=== PATIENT | female | born 1990 | race Caucasian/White ===

== ENCOUNTER 2021-12-07 15:14 | Outpatient (CLI) | payer OTHER, SELFPAY ==
--- NOTE | ~2021-12-07 | US_ITS ---
US OB <=14 wk fetus w TV DATE: 12/07/2021 16:22 INDICATION: Gestational age determination TECHNIQUE: Real-time imaging via transabdominal and transvaginal approaches COMPARISON: None FINDINGS: The uterus measures 8.4 cm height, 4.9 cm anteroposterior dimension. A normally shaped intr auterine gestational sac is identified, with pole and yolk sac. heart rate of 138 bpm. Cr own-rump length averages 0.47 cm, consistent with 6 weeks 1 day +/- 4 days estimated gestational age, EMIL 08/01/2022. 1.9 x 2.4 cm corpus luteum cyst of the right ovary right ovary measures 3.2 x 3.5 x 2.0 cm. Left ovar y measures 2.2 x 2.0 x 2.2 cm. IMPRESSION: Estimated gestational age is 6 weeks 1 day +/- 4 days; EMIL: 08/01/2022 1.9 x 2.4 cm right ovarian corpus luteum cyst Reviewed, dictated and finalized at [facility]. Reviewed, dictated and finalized at location B. IMPRESSION: Estimated gestational age is 6 weeks 1 day +/- 4 days; EMIL: 1.9 x 2.4 cm right ovarian corpus luteum cyst
== END 2021-12-07 15:15 | disposition home or self-care (01) ==
LOC: ANHIMG 15:21
PROVIDERS: Visit Provider Obstetrics & Gynecology
DX: E34.9 Endocrine disorder, unspecified (principal); Z3A.01 Less than 8 weeks gestation of pregnancy; N83.11 Corpus luteum cyst of right ovary
CPT/HCPCS: 76801; 76817

== ENCOUNTER 2022-06-23 13:36 | Outpatient (RCR) | payer OTHER, SELFPAY ==
--- NOTE | ~2022-06-23 | US_ITS ---
US OB limited 06/23/2022 14:41 Indication: Evaluate amniotic fluid index. Procedure: High-resolution Limited obstetrical ultrasound using transabdominal technique Comparison: Ultrasound dated 12/07/2021 Findings: There is a single living intrauterine in vertex presentation. heart rate is 138 BPM. Placenta is posterior without previa. Amniotic fluid index is normal measuring 13.6 cm (nor mal range for gestational age is 8.1-24.8 cm). Impression: 1: Normal JACK measures 13.6 cm. Reviewed, dictated and finalized at location B. ITE CONTROL TECHNICIAN Impression: 1: Normal JACK measures 13.6 cm.
[2022-06-23 14:01] VITALS: BP 93/60; PULSE 84
[2022-06-23 14:15] VITALS: BP 97/61; PULSE 86
[2022-06-23 14:42] VITALS: BP 97/61; PULSE 84
== END 2022-08-20 15:07 | disposition home or self-care (01) ==
LOC: ANHOBOP 13:36
PROVIDERS: Visit Provider Obstetrics & Gynecology
DX: O26.893 Other specified pregnancy related conditions, third trimester (principal); Z3A.34 34 weeks gestation of pregnancy
CPT/HCPCS: 59025; 76815

== ENCOUNTER 2022-07-26 01:00 | Inpatient (IN) | payer OTHER, SELFPAY ==
[2022-07-26] VITALS (230 sets, daily range): BP systolic 69–117; BP diastolic 18–93; PULSE 60–265; RESP 16; TEMP 36.6–37.3; O2SAT 96–100; BMI 31.2
--- NOTE | 2022-07-26 01:53 | LDADM ---
This patient, Mony Reyes, was admitted to Labor/Delivery/Recovery 106 on 07/26/22 at 01:00. Plans for labor, pain management and were discussed with patient. Patient/family oriented to hospital policies and general routines including ID bracelet, bed and alarms, visiting hours, pain management, procedures, bathroom and other care routines, personal items, smoking policy, room service/diet and guest tray routines, infant security routines, and visiting hours. Patient/Family are encouraged to report perceived risks to care and to ask questions if they do not understand what they are told or what they should do. See OBIX for further documentation.
--- NOTE | 2022-07-26 02:43 | PC.NURSE ---
Called lab to inquire about patients lab results. Labs sent via tube system to lab at 0153. Muna in lab stated she would look for labs and run them.
[2022-07-26] MEDS: OXYTOCIN 30 UNITS/NS 500 ML 30 UNITS/500 ML BAG IV CONT (03:12)
[2022-07-26] MEDS: LACTATED RINGERS 1,000 ML 125 ML IV CONT ×4 (03:12→10:26)
--- NOTE | 2022-07-26 03:25 | PC.NURSE ---
Called lab again to inquire about lab results. The tube system still shows that the labs were sent to lab and received there at 0153. Muna in the lab states that they cannot locate the blood and we need to redraw the blood because she cannot find it. Incident report was submitted.
[2022-07-26 04:05] LABS: Basophils Percent Auto 0.4 % (0.2-1.2); Eosinophils Absolute Auto 0.1 K/mm3 (0-0.3); Eosinophils Percent Auto 1.5 % (0-4.4); Hematocrit 35.1 % (37.0-47.0); Hemoglobin 12.4 g/dL (12.0-15.0); Immature Granulocyte Absolute 0.05 K/mm3 (0.00-0.031); Immature Granulocyte Percent A 0.5 % (0-0.5); Lymphocytes Absolute Auto 2.11 K/mm3 (0.9-3.2); Lymphocytes Percent Auto 22.5 % (18.3-44.2); Mean Corpuscular HGB Conc 35.3 g/dl (32-36); Mean Corpuscular Hemoglobin 32.6 pg (26-34); Mean Corpuscular Volume 92.4 fl (80-100); Mean Platelet Volume 10.5 fl (7.4-10.4); Monocytes Absolute Auto 0.6 K/mm3 (0.1-0.6); Monocytes Percent Auto 6.7 % (2.6-8.5); Neutrophils Absolute Auto 6.4 K/mm3 (1.3-6.7); Neutrophils Percent Auto 68.4 % (45.5-73.1); Platelet Count Result 223 k/mm3 (150-375); Red Cell Distribution Width 13.1 % (11.5-14.5); White Blood Count 9.4 K/mm3 (4.5-10.0)
--- NOTE | 2022-07-26 07:13 | WPDANESEPP ---
Anes - Eval Pre Procedure Procedure: labor epidural Date/Time: 07/26/22 07:13 Preop Diagnosis: labor pain Pre Op Diagnosis: LEAKING Patient Data Age: 31 Gender: F Height: 1.6 m Weight: 80 kg Last Vital Signs Temp 36.6 C 07/26/22 02:00 Pulse 86 07/26/22 07:00 BP 101/58 L 07/26/22 07:00 Pulse Ox 99 07/26/22 07:11 O2 Del Method Room Air 07/26/22 01:44 Allergies Allergy/AdvReac Type Severity Reaction Status Date / Time No Known Allergies Allergy Verified 07/22/22 11:45 Home Medications Medication Instructions Recorded Confirmed Type prenat.vits,robyn,[id number] 1 tablet PO DAILY 12/22/21 07/26/22 History ferrous sulfate 325 mg (65 mg 325 mg PO DAILY 07/03/22 07/26/22 History iron) tablet (Iron (ferrous sulfate)) Laboratory Tests 07/26/22 07/26/22 07/26/22 03:42 03:42 03:42 WBC 9.4 K/mm3 K/mm3 (4.5-10.0) RBC 3.80 M/mm3 L M/mm3 (4.2-5.4) Hgb 12.4 g/dL g/dL (12.0-15.0) Hct 35.1 % L % (37.0-47.0) MCV 92.4 fl fl (80-100) MCH 32.6 pg pg (26-34) MCHC 35.3 g/dl g/dl (32-36) RDW 13.1 % % (11.5-14.5) Plt Count 223 k/mm3 k/mm3 (150-375) MPV 10.5 fl H fl (7.4-10.4) Immature Gran % (Auto) 0.5 % % (0-0.5) Neut % (Auto) 68.4 % % (45.5-73.1) Lymph % (Auto) 22.5 % % (18.3-44.2) [place] % (Auto) 6.7 % % (2.6-8.5) Eos % (Auto) 1.5 % % (0-4.4) Baso % (Auto) 0.4 % % (0.2-1.2) Lymph # (Auto) 2.11 K/mm3 K/mm3 (0.9-3.2) [place] # (Auto) 0.6 K/mm3 K/mm3 (0.1-0.6) Eos # (Auto) 0.1 K/mm3 K/mm3 (0-0.3) Baso # (Auto) 0.0 K/mm3 K/mm3 (0.0-0.1) Abs Immat Gran (auto) 0.05 K/mm3 H K/mm3 (0.00-0.031) Absolute Neuts (auto) 6.4 K/mm3 K/mm3 (1.3-6.7) Absolute Nucleated RBC 0.0 K/mm3 K/mm3 (0.0-0.012) Nucleated RBC % 0.0 % % (0.0-0.2) RPR Pending Blood Type B Positive Antibody Screen Negative Patient hx anesthesia problems: none Family hx anesthesia problems: none Results Review: All pre-operative results and documents have been reviewed as part of the pre-operative evaluation. [facility] Surgical History Surgical History [place] teeth removed Family History Family History Father Hypertension Heart disease Mother Diabetes mellitus Social History Social History Smoking status: Never smoker Alcohol intake: never Substance use: never Lack of Transportation: No Lack of Food: Never True Current Housing: I Have Housing Concerned About Future Housing: No Difficulty Paying Gas/Electric Bills: No Difficulty Paying for Meds: No Currently Unemployed: No Education: Master's Degree or Higher Difficulty w/ Childcare or Family Care: No Spiritual care concerns: No Exam Day of Procedure 07/26/22 07:13
[2022-07-26] MEDS: PHENYLEPHRINE 1,000 MCG/10 ML SYRINGE 100 MCG IV PUSH (08:27)
--- NOTE | 2022-07-26 08:34 | PM.IMHP ---
H&P: HPI History of Present Illness Date/Time: 07/26/22 08:34 Chief Complaint: Leaking of fluid. Narrative: Patient is a at 39 and 6 days by LMP of 10/20/2021 with an EDC of 07/27/2022 which is consistent with a 6 week ultrasound. She presented to Labor and delivery with complaints of leaking of fluid. She was confirmed as from clear. This was at midnight on 327. course significant for velamentous cord insertion which she has been getting serial ultrasounds and the growth has been normal. Labs reviewed. GBS negative. Cervix 1 cm. irregular contractions. Review of Systems Review of Systems: All systems reviewed & are unremarkable except as noted in HPI and below Constitutional: Constitutional: Reports no additional constitutional complaints and Denies headache(s) Eyes: Eyes: Denies spots in vision ENT: Reports system reviewed and no additional complaints, except as documented and Denies headache(s) Cardiovascular: Cardiovascular: Denies chest pain and Denies dyspnea Respiratory: Respiratory: Denies dyspnea Gastrointestinal: Gastrointestinal: Reports no additional gastrointestinal complaints Genitourinary: Genitourinary: Reports amenorrhea Musculoskeletal: Musculoskeletal: Reports no additional musculoskeletal complaints Integumentary/Breasts: Skin/Breast: Denies breast mass and Denies rash Neurologic: Denies headache(s) Psychiatric: Psychiatric: Reports no additional psychiatric complaints [facility] Surgical History Surgical History [place] teeth removed Family History Family History Father Hypertension Heart disease Mother Diabetes mellitus Social History Social History Smoking status: Never smoker Alcohol intake: never Substance use: never Lack of Transportation: No Lack of Food: Never True Current Housing: I Have Housing Concerned About Future Housing: No Difficulty Paying Gas/Electric Bills: No Difficulty Paying for Meds: No Currently Unemployed: No Education: Master's Degree or Higher Difficulty w/ Childcare or Family Care: No Spiritual care concerns: No Meds Home Medications and Allergies Home Medications Medication Instructions Recorded Confirmed Type prenat.vits,robyn,[id number] 1 tablet PO DAILY 12/22/21 07/26/22 History ferrous sulfate 325 mg (65 mg 325 mg PO DAILY 07/03/22 07/26/22 History iron) tablet (Iron (ferrous sulfate)) Allergies Allergy/AdvReac Type Severity Reaction Status Date / Time No Known Allergies Allergy Verified 07/22/22 11:45 Vital Signs Vital Signs - 24 hr 07/26/22 01:32 07/26/22 01:45 07/26/22 02:00 Temperature 97.8 F Pulse Rate 86 79 78 Blood Pressure 108/65 109/73 111/77 Pulse Oximetry Oxygen Delivery 07/26/22 02:15 07/26/22 02:30 07/26/22 02:45 Temperature Pulse Rate 80 81 76 Blood Pressure 104/66 103/67 100/69 Pulse Oximetry Oxygen Delivery 07/26/22 03:00 07/26/22 03:15 07/26/22 03:30 Temperature Pulse Rate 75 79 67 Blood Pressure 88/55 L 95/56 L 98/58 L Pulse Oximetry Oxygen Delivery 07/26/22 03:35 07/26/22 03:40 07/26/22 03:45 Temperature Pulse Rate 78 Blood Pressure 88/51 L Pulse Oximetry 98 99 99 Oxygen Delivery 07/26/22 03:50 07/26/22 03:55 07/26/22 04:00 Temperature Pulse Rate 76 Blood Pressure 93/51 L Pulse Oximetry 98 98 98 Oxygen Delivery 07/26/22 04:05 07/26/22 04:10 07/26/22 04:15 Temperature Pulse Rate 64 Blood Pressure 89/47 L Pulse Oximetry 99 98 99 Oxygen Delivery 07/26/22 04:17 07/26/22 04:20 07/26/22 04:25 Temperature Pulse Rate 60 Blood Pressure 92/52 L Pulse Oximetry 99 100 Oxygen Delivery 07/26/22 04:30 07/26/22 04:35 07/26/22 04:40 Temperature Pulse Rate 79 Blood P
--- NOTE | 2022-07-26 09:00 | PM.OBPNLAB ---
Pain Control Date/time seen: 07/26/22 09:00 FHT 135 Cat 2 Epidural recently placed cervix . Continue pitocin augmentation.
[2022-07-26] MEDS: LIDOCAINE HCL 1% LOCAL INJ 20 ML VIAL (13:22)
[2022-07-26 13:48] LABS: Rapid Plasma Reagin Non-Reactive (NonReactive)
[2022-07-26] MEDS: OXYTOCIN 30 UNITS/NS 500 ML 30 UNITS/500 ML BAG 125 UNITS IV CONT (13:51)
--- NOTE | 2022-07-26 16:42 | PM.OBPRVD ---
OB - Delivery Note Procedure Delivery date: 07/26/22 Procedure: spontaneous vaginal delivery Induction method: Per Pitocin Protocol Delivery augmentation: Pitocin Delivery monitor: External FHT and Internal Uterine Route of delivery: Laceration Description: Perineal - 2nd Degree and Labial Delivery repair: vicryl (3.0 vicryl) Quantitative Blood Loss (ml): 350 Anesthesia type: Epidural Disposition: Floor Narrative: She was admitted after confirmed SROM. She had pitocin augmentation. [place] Baby Time of : 13:23 Weeks of gestation at delivery: 39 gender: Male presentation: vertex Placenta delivery description: Spontaneous Cord Vessel Description: Clamped/Cut and Delayed Cord Clamping score one minute: 9 score five minutes: 9 AMG Delivery Billing Delivery Delivery: Delivery Charge
--- NOTE | 2022-07-26 17:33 | OBPPTRN ---
1529 Patient transferred to post room #286 via W/C. Support person present. Oriented to unit, room, information board, rooming in, admission packet and security measures. Patient verbalizes understanding.
[2022-07-26] MEDS: IBUPROFEN 600 MG TABLET PO (19:50)
[2022-07-27 04:35] VITALS: BP 96/61; PULSE 82; RESP 16; TEMP 36.6
[2022-07-27 04:53] LABS: Hematocrit 34.2 % (37.0-47.0); Hemoglobin 10.5 g/dL (12.0-15.0)
[2022-07-27] MEDS: IBUPROFEN 600 MG TABLET PO ×3 (05:01→21:25)
[2022-07-27 07:55] VITALS: BP 102/74; PULSE 74; RESP 16; TEMP 36.5; O2SAT 100
--- NOTE | 2022-07-27 09:47 | WPDANLDPN2 ---
Anes-Prog Note L&D Date/Time: 07/27/22 09:47 Comfortable throughout: labor and delivery Neuraxial method: epidural Epidural/Spinal procedure site: clean & non-tender Neuro status: Neuro function grossly intact. Cardiovascular status: normal Respiratory status: normal Airway patency: baseline Mental status: baseline Post-Op hydration status: normal Vital Signs: Last Vital Signs Temp 97.7 F 07/27/22 07:55 Pulse 74 07/27/22 07:55 Resp 16 07/27/22 07:55 BP 102/74 07/27/22 07:55 Pulse Ox 100 07/27/22 07:55 O2 Del Method Room Air 07/26/22 16:55 Pain score (VAS): 0 I/O: Intake & Output 07/26/22 07/27/22 07/27/22 23:59 07:59 15:59 Intake Total 700 Output Total 500 Balance 200 Post-procedural complaints: none Patient feedback: Patient satisfied with anesthetic care.
[2022-07-27] MEDS: DOCUSATE SODIUM 100 MG CAPSULE PO ×2 (09:51→17:20)
[2022-07-27] MEDS: MULTIVIT/MIN/PREN/FOL AC/IRON TABLET 1 TAB PO (09:51)
[2022-07-27] MEDS: ACETAMINOPHEN 325 MG TABLET 650 MG PO ×2 (09:51)
--- NOTE | 2022-07-27 10:47 | PC.NURSE ---
[id number] Introductions were made, then consulted with patient to assess needs related to . Mother led the conversation with her?plans to feed?her infant and the?experience so far. Resources provided for inpatient and outpatient services with the feeding sheet, mom/baby guide and name written on the white board. Mother voiced understanding of information and consents for assistance. Mother works well with her infant with encouragement and education. Encouraged understanding of the benefits of skin to skin (demonstrating unwrapping and placing upright on her chest), stimulating with massage touch, changing positions to encourage wakefulness, how to watch for early feeding cues, responsive feeding, feeding on demand (aiming for 8-12 times in 24 hours, about every 2-3 hours), milk production, building/maintaining a milk supply, duration of feeding, signs of adequate intake/output (used the pie demonstration) and how to record on the feeding sheet. is sleepy and reluctant. 0.5mls of human milk that was pumped earlier was syringe fed to . remains sleepy, reluctant and showing no feeding cues. Encouraged skin to skin and working with her infant when feeding cues are visualized, calling if infant doesn't wake to eat or if the latch is painful. Breast pump was provided last night due to ineffective . Instructions given on cleaning, care, usage, that there should be no pain, pumping schedule for milk production, collection, and storage of human milk. Parents are encouraged to record pumping schedule on the feeding sheet. Patient was assessed pumping without pain and protection of the milk supply by pumping every 3 hours (8 times in 24 hours) 1-2 times at night. Resources used to facilitate learning were used with the tool, mom and baby guide. Mother voiced understanding of skin to skin, stimulating with massage touch, responsive feedings, talking to to encourage if it has been 2 -2.5 hours since the start of the last , to call if does not latch, or if there is discomfort with . Resources provided for inpatient/outpatient with business card, feeding sheet, name written on the white board and the mom/baby guide. Parents voiced understanding of information, demonstrated learning and will call if there is a request for assistance. Reported to the primary RN.
[2022-07-27 12:05] VITALS: BP 95/54; PULSE 92; RESP 16; TEMP 36.6; O2SAT 99
[2022-07-27 18:48] VITALS: BP 100/61; PULSE 65; RESP 16; TEMP 36.1
[2022-07-28] MEDS: ACETAMINOPHEN 325 MG TABLET 650 MG PO (03:18)
--- NOTE | 2022-07-28 03:26 | PM.OBPNVD ---
OB - PN: Subj Subjective Date/time seen: 07/27/22 0800 Patient comments: pain well controlled, tolerating diet and other (Decreasing lochia.) baby status: doing well and nursing well OB - PN: Obj Data Labs 07/27/22 04:45 Labs: Laboratory Results - last 24 hr 07/27/22 04:45 Hgb 10.5 L Hct 34.2 L OB - PN A/P Plan day: 1 Plan: routine care Time Spent With Patient Time: Total time spent is greater than 50% in coordination of care (as documented) at patient's floor/unit and/or counseling patient: Review of Systems Review of Systems: All systems reviewed & are unremarkable except as noted in HPI and below Constitutional: Constitutional: Reports no additional constitutional complaints Cardiovascular: Cardiovascular: Denies dyspnea Respiratory: Respiratory: Denies dyspnea Gastrointestinal: Gastrointestinal: Reports no additional gastrointestinal complaints and Denies abdominal pain Genitourinary: Genitourinary: Reports no additional female genitourinary complaints Exam Const: General: no acute distress, alert and awake Resp: Effort & Inspection: normal respiratory effort GI: GI Palp: No Tenderness to palpation present (GI) Other: Fundus nontender, below umbilicus Psych: Appearance: grossly normal Affect: normal affect Other: Abd: fundus firm below umbilicus, nontender Perineum: healing Ext: nontender
[2022-07-28 07:30] VITALS: BP 108/65; PULSE 81; RESP 12; TEMP 36.6; O2SAT 100
[2022-07-28] MEDS: IBUPROFEN 600 MG TABLET PO (07:59)
[2022-07-28] MEDS: MULTIVIT/MIN/PREN/FOL AC/IRON TABLET 1 TAB PO (08:00)
[2022-07-28] MEDS: DOCUSATE SODIUM 100 MG CAPSULE PO (08:00)
--- NOTE | 2022-07-28 09:51 | PC.NURSE ---
On 07/28/22, the student, Diana Pham, provided care and completed [facility] documentation on this patient. I have reviewed the student's documentation and agree with the findings.
--- NOTE | 2022-07-28 10:55 | PC.NURSE ---
[id number] Purposefully rounded to assess needs. Mother is resting. RN will return after seeing infant had been supplemented at 1015 with 7mls. Mother speaks concerning the soreness with . Father of baby is encouraging mother to rest. RN suggested getting rest, something to eat at noon, then unwrapping infant around 1215 and placing skin to skin stimulating with burping and massage touch to wake for . Reviewed watching for feeding cues and practicing when demonstrates he is ready to eat. Parents voiced understanding to call if infant doesn't wake to breastfeed or if the latch is painful. assistance was offered to assess positioning and latch.
--- NOTE | 2022-07-28 11:00 | PC.NURSE ---
Patient viewed the discharge video Mother & Baby Care, The First Two Weeks . Patient was given the opportunity and encouraged to ask questions. Patient verbalized understanding of information shared and has been given the mother/baby guide for home reference.
--- NOTE | 2022-07-28 12:50 | PC.NURSE ---
[id number] Mother requested a consult. Reviewed the importance of skin to skin and stimulating to wake and breastfeed. Transitional stool diaper changed, then placed skin to skin upright on mothers chest between her breast. Mother was encouraged to use massage touching to stimulate and there was again another moderate stool. After the diaper was changed was content, calm and placed skin to skin with mother and demonstrated feeding cues. Mother acknowledged feeding cues and positioned to the left breast using cross cradle. Mother was unable to latch optimally and did not maintain latch. Suggestion was made to practice using the football positioning and mother consented. RN assisted mother latching to the right breast using football positioning. Mother states it was uncomfortable at first, then subsided. Mother was encouraged to place pillows to support infant at nipple level, rest nipple at the top lip just under the nose, then when infant opens with a big wide gape, bring to the breast chin first obtaining a deep latch. Father of baby is present to reassure mother that the deep latch leaves room for the nose to be near and allows to breath. After effectively for 18 minutes, mother practiced detaching infant from the breast to protect her nipple. Infant was placed skin to skin, feeding cues were demonstrated, then was placed football position at nipple level supported by pillow and latched optimally with chin leading and buried into the chest. Parents were instructed on how to watch and listen for swallowing, rocking jaw movement and mother is to not have pain but could have discomfort that is to subside after 1-2 minutes. If there is sharp pain detach and latch with big open mouth deeply. Parents are feeding appropriately for growth of infant and understands stimulating infant to eat if needed. Infant has had appropriate feedings in the last 24 hours meets the outcomes for weight, output and jaundice at this time. Mother states she is confident to continue effectively breastfeed, pump if infant receives a bottle or doesn't breastfeed effectively, and they will supplement per Dr's order until further notice understanding that there's is a follow-up appointment with a RN tomorrow. Discussed the risks and benefits of supplementing and encouraged paced bottle feeding. Reinforced understanding of milk production, transition of milk, signs of adequate intake, transition of stool, prevention/relief of engorgement, responsive watching for feeding cues, the different methods of stimulating to breastfeed 2-3 hours after the start of the last feeding, service outpatient, and when to call a provider using the resource of the mom and baby guide. Parents voiced understanding of the education shared. Reported to the primary RN.
[2022-07-29 13:02] VITALS: BP 110/66; PULSE 93; RESP 18; TEMP 37; O2SAT 100
--- NOTE | 2022-08-09 09:30 | PM.OBDSVD ---
DS: Admitting Diagnosis Discharge Date 07/28/22 Admitting Diagnosis Spontaneous rupture of membranes DS: Discharge Diagnosis Discharge Diagnosis (1) Delivery normal: Code(s): O80 - Encounter for full-term uncomplicated delivery Status: Acute OB - DS: Summary Hospital Course Hospital Course: She was admitted for SROM. She had pitocin augmentation. She had a vaginal delivery. She had repair of a second degree laceration and labial laceration. She did well . She was ambulating well, had adequate pain control, and baby was doing well. Was discharged to home on day 2. OB Procedures : Ultrasound OB Procedures Intrapartum: Spontaneous Vag Delivery OB Procedures: : None Peripartum Data Delivery Method: Natural Vaginal Laceration Description: Perineal - 1st Degree complications: none Status at Discharge Functional status at discharge: independent ambulation Time Spent with Patient Time attestation: Total time spent providing and/or coordinating discharge services: Exam Const: General: cooperative Orientation/consciousness: oriented to person, oriented to place and oriented to time HENMT: Face/Nose/Sinus: Normal external nose present Eyes: General: appearance normal, both eyes and all related structures Resp: Effort & Inspection: normal respiratory effort GI: Inspection: normal to inspection Skin: General skin exam: normal color Neuro: General: oriented to person, oriented to place and oriented to time Extrem: General: normal to inspection and no calf tenderness Psych: Appearance: grossly normal Mental Status: mental status grossly normal DS: Data Data Completed and Pending Completed studies during hospitalization: Pending at discharge 07/26/22 14:33 Surgical [PTH] Routine Discharge Plan Discharge Attending physician on discharge: Rodolfo Reed Consulting providers: Nadia Marcial ; Rika Christie Discharging Clinician: Rodolfo Reed Anticipated Discharge Date/Time: 07/28/22 11:58 Patient Disposition: Home, Self-Care Activity: may shower, no straining and pelvic rest Diet: regular Discharge Instructions: Education: Mom and Baby Guide Given to: Mother Follow-Up: Call your delivering provider's office for an appointment to be seen in: 3 weeks Mom and baby should come to the [facility] for the follow-up appointment. Appointment Date/Time: July 29, 2022 at 12:30 pm What to expect at your follow-up visit: Blood Pressure Check Physical Assessment Call [phone] if you are unable to keep your appointment time. BREAST CARE: * Wear a snug supportive bra. * For engorgement discomfort: Breast Feeding: * Apply warm moist washcloths * Express milk as needed to relieve engorgement * Wear loose clothing Bottle Feeding: * May apply ice packs * For sore nipples: * Identify correct latch-on * Apply warm moist washcloths before and after nursing * Air dry nipples after nursing * May apply Lansinoh cream to nipples EPISIOTOMY/PERINEAL CARE: * Until bleeding stops, use your fernando bottle after urinating * Change your pad frequently throughout the day * You may take sitz baths several times a day (fill your bathtub with warm water and soak for 20 minutes.) Do NOT bathe in the water * No tub baths until seen by your physician - You may shower ACTIVITY: * Rest as much as possible. * Do not exercise or lift anything heavier than your baby (such as laundry or other children.) * Avoid stairs or driving as much as possible. * Do not put anything into the vagina. No douching, tampons, or sexual activity until seen by physician. NOTIFY PHYSICIAN IF YOU HAVE ANY QUESTIONS OR IF ANY OF THE FOLLOWING SYMPTOMS OCCUR: * If your episiotomy or incision becomes red, swollen, or more painful than what you have experienced in
== END 2022-07-28 14:36 | disposition home or self-care (01) | DRG 807 ==
LOC: ANHLDR 01:29 → ANHOB2 16:57
PROVIDERS: Admitting Provider Obstetrics & Gynecology; Visit Provider Obstetrics & Gynecology
DX: O43.123 Velamentous insertion of umbilical cord, third trimester (principal); Z37.0 Single live birth; Z3A.39 39 weeks gestation of pregnancy; O32.6XX0 Maternal care for compound presentation, not applicable or unspecified; O69.81X0 Labor and delivery complicated by cord around neck, without compression, not applicable or unspecified; O70.1 Second degree perineal laceration during delivery
CPT/HCPCS: 36415; 84112; 85014; 85018; 85025; 86592; 86850; 86900; 86901; 88307; A9270; J2370; J2590; J2795; J7120

== ENCOUNTER 2023-06-12 18:01 | Emergency (ER) | payer OTHER, SELFPAY ==
--- NOTE | ~2023-06-12 | XR_ITS ---
Left Hand Technique: PA, oblique, and lateral views were obtained. Clinical History: Laceration Findings: No acute fracture or dislocation is seen. Osseous alignment is anatomic. Joint spaces are p reserved. Soft tissues are unremarkable. No radiopaque foreign body seen. Impression: Unremarkable left hand. Reviewed, dictated and finalized at [facility]. ALT MIXER Impression: Unremarkable left hand.
[2023-06-12 18:08] VITALS: BP 125/85; PULSE 66; RESP 18; TEMP 36; O2SAT 98
--- NOTE | 2023-06-12 18:14 | ED.WOUNDLAC ---
HPI - Wound/Laceration General Chief Complaint: Wound/Laceration Stated Complaint: Glass in hand Time Seen by Provider: 06/12/23 18:12 Source: patient Mode of arrival: ambulatory Limitations: no limitations History of Present Illness HPI narrative: This is a 32 year old female that presents to the ER for injury to the left hand sustained just prior to arrival. Reports she was cleaning dishes and some glass broke. Sustained lacerations to the left hand and wrist. She is up to date on tetanus. Denies decreased ROM or numbness. Related Data Home Medications Medication Instructions Recorded Confirmed prenat.vits,robyn,rbv-hjhi-nbrit 1 tablet PO DAILY 12/22/21 02/03/23 Allergies Allergy/AdvReac Type Severity Reaction Status Date / Time No Known Allergies Allergy Verified 02/03/23 15:17 Review of Systems Review of Systems: CONSTITUTIONAL: Denies fever SKIN: Reports laceration All systems reviewed & are unremarkable except as noted in HPI and below PMFSH Past Medical History Medical History (Updated 06/12/23 @ 18:43 by Peg Robbins PA-C) No active medical problems Surgical History Surgical History [place] teeth removed Family History Family History Father Hypertension Heart disease Mother Diabetes mellitus Social History Social History (Updated 02/03/23 @ 15:11 by Cruzito Swann CMA) Smoking status: Never smoker Alcohol intake: never Substance use: never Lack of Transportation: No Lack of Food: Never True Current Housing: I Have Housing Concerned About Future Housing: No Difficulty Paying Gas/Electric Bills: No Difficulty Paying for Meds: No Currently Unemployed: No Education: Master's Degree or Higher Difficulty w/ Childcare or Family Care: No Living arrangements: with family Spiritual care concerns: No Exam Narrative: GENERAL: Well-appearing, well-nourished, and in no acute distress. HEAD: Normocephalic, atraumatic. EYES: EOMI. EXTREMITIES: Normal range of motion. No edema. Superficial abrasions to the fingers. 1cm irregular laceration into subcutaneous tissue to the left wrist palmar surface SKIN: Warm, dry, no rash. NEURO: No focal deficits. Alert and oriented x3. PSYCH: Normal mood and affect Course Course Emergency Course: Patient educated on further wound care Vital Signs Vital signs: Vital Signs Temperature 96.8 F L 06/12/23 18:08 Pulse Rate 66 06/12/23 18:08 Respiratory Rate 18 06/12/23 18:08 Blood Pressure 125/85 06/12/23 18:08 Pulse Oximetry 98 06/12/23 18:08 Temperature 96.8 F L 06/12/23 18:08 Pulse Rate 66 06/12/23 18:08 Respiratory Rate 18 06/12/23 18:08 Blood Pressure 125/85 06/12/23 18:08 Pulse Oximetry 98 06/12/23 18:08 Procedures Laceration Laceration 1: Date: 06/12/23 Time: 19:02 Site: hand Side (If applicable): left Size (cm): 1 Description: irregular Depth: simple, single layer Local Anesthetic: lidocaine 1% and with epi Amount of anesthesia used (mL): 2 Pre-repair: wound explored and irrigated ====== Skin Level ====== Skin layer closed with: nylon Size (cm): 4-0 Number of sutures: 2 Technique: simple, interrupted ====== Subcutaneous Layer ====== ====== Muscle Layer ====== ====== Tendon Layer ====== MDM - Wound/Laceration MDM Narrative Medical decision making narrative: Patient presents to the emergency department for a laceration sustained to the left wrist. Patient was cleaning dishes when glass broke. Wounds were irrigated. She had 1 laceration that required suturing. Left hand x-ray without acute osseous abnormalities or evidence of foreign body. Patient is up-to-date on tetanus. She was educated on further wound care. She is to follow up
[2023-06-12 19:12] VITALS: BP 122/64; PULSE 66; RESP 15; O2SAT 100
== END 2023-06-12 19:13 | disposition home or self-care (01) ==
PROVIDERS: Emergency Provider Physician Assistant; PCP Family Medicine
DX: S61.412A Laceration without foreign body of left hand, initial encounter (principal); W25.XXXA Contact with sharp glass, initial encounter; Y93.G1 Activity, food preparation and clean up
CPT/HCPCS: 12001; 73130; 99283

== ENCOUNTER 2023-11-28 14:29 | Outpatient (CLI) | payer OTHER, SELFPAY ==
--- NOTE | ~2023-11-28 | US_ITS ---
EXAMINATION: US OB <= 14 weeks fetus DATE: 11/28/2023 16:48 INDICATION: Amenorrhea. First trimester . TECHNIQUE: Real-time pelvic ultrasound utilizing both a transvaginal and transabdominal probe was pe rformed. The interpreting radiologist was not present for the study. COMPARISON: None. FINDINGS: The uterus measures 13.5 x 5.0 x 10.7 cm. There is an intrauterine gestational sac. A yolk sac and f etal pole are identified. The crown rump length measures 4.1, which correlates with an estimated gest ational age of 11 weeks and 0 days. heart motion is identified measuring 165 beats per minute ( bpm) by M-mode Doppler. The right ovary measures 4.0 x 2.3 x 2.6 cm. The left ovary measures 3.1 x 0.8 x 3.0 cm. There is no free fluid in the pelvis. IMPRESSION: 1. Single living fetus with heart rate of 165 bpm. 2. Gestational age by ultrasound of 11 weeks 0 day(s) +/- 7 day(s) with ultrasound estimated date of delivery (EMIL) of 06/18/2024. Reviewed, dictated and finalized at location A. IMPRESSION: 1. Single living fetus with heart rate of 165 bpm. 2. Gestational age by ultrasound of 11 weeks 0 day(s) +/- 7 day(s) with ultras ound estimated date of delivery (EMIL) of 06/18/2024.
== END 2023-11-28 14:30 | disposition home or self-care (01) ==
LOC: ANHIMG 14:30
PROVIDERS: PCP Family Medicine; Visit Provider Nurse Practitioner Family
DX: N91.2 Amenorrhea, unspecified (principal); Z3A.11 11 weeks gestation of pregnancy
CPT/HCPCS: 76801

== ENCOUNTER 2024-04-05 08:15 | Outpatient (RCR) | payer OTHER, SELFPAY ==
--- NOTE | 2024-03-22 09:58 | OPREHPOC ---
Outpatient Therapy Plan of Care This is a Multidisciplinary Plan of Care that may contain components documented by all disciplines (PT, OT, and ST.) PT Problem 1 PT Problem #1 Knowledge Deficit PT Goal 1 Goal / Goal Update *indep with HEP * pt use correct body mechanics with simulated tasks of picking up her child Target Visit 6 PT Problem 2 PT Problem #2 Pain PT Goal 1 Goal / Goal Update 1* pt rate pain at 5/10 at worst 2* pt report walking tolerance of 30 minutes Target Visit 6 PT Problem 3 PT Problem #3 Impaired Strength PT Goal 1 Goal / Goal Update increase hip and trunk strength, to improve lumbar position/decrease lordosis of spine 1* pt stand with minimal lumbar lordosis 2* pt perform 20 sitting ball exercises with good stability Target Visit 6
--- NOTE | 2024-03-22 09:58 | PTOPEVAL1 ---
Assessment and note entered by Vivienne Stokes, PT Evaluation Information Assessment Status Evaluation ICD-10 Condition Codes (PT) M54.16 Onset Jan 2024 Subjective Information history of intermittent back pain/sciatica, with running, more activity and her first ; always resolved fairly quickly, now starting to limit her walking and activity level; Activity: education to clients, office work- active; is able to complete her home and work tasks; have 21 month old son; Reported Pain Level Pain Score Self Report Additional Pain Score Comments pain range in the past week 1-11/08 R lumbar and buttock areas increase pain: sitting about 1 hour- varies; walking about 15-20 minutes- varies; decrease pain: change positions, stretching- flexion of trunk, heat Assessment PT Clinical Summary Mony has the diagnosis of sciatica with . Her baby is due Jun 18. She has a history of intermittent back pain and did have with her first . Self assessment Oswestry rating of 28% limitation in activity level. Walking is limited due to back pain. With the evaluation: she has increased lumbar lordosis, tenderness over R lumbar-sacral and buttocks areas; pain is decreased with flexion of lumbar spine; Skilled PT services are indicated for modalities to decrease pain, therapeutic exercises to stretch and strengthen lumbar-hips, with education for HEP and pain management. Plan of Care Interventions Hot Pack/Cold Pack,Manual Therapy,Neuro Re- education,Patient/Caregiver Education,Therapeutic Activities,Therapeutic Exercise,Other Other Interventions taping PT Services Indicated Yes Treatment Frequency and 1-2x/wk for 6 visits Duration These treatments will address the objective and functional deficits as defined above. The patient will be advanced safely and appropriately in order for the patient to progress towards his/her prior level of function. Additional exercises will be introduced and as well as a comprehensive home exercise program upon discharge, if needed, ?to ensure carryover of functional gains achieved in the clinic. This treatment plan has been reviewed and agreement upon by the patient.
--- NOTE | 2024-04-20 08:24 | PCPTNOTE ---
Pt NS visit today, LM with an opening at 13:15 today if possible and reminder of Re-eval on the at 11:00.
--- NOTE | 2024-04-26 11:07 | PCPTNOTE ---
pt called and canceled today's reevaluation. stated she would call later to reschedule.
--- NOTE | 2024-05-18 13:33 | PTOPDC ---
Assessment and note entered by Vivienne Stokes, PT Assessment Status Discharge - Pt Not Present ICD-10 Condition Codes (PT) Radiculopathy, lumbar region M54.16 Onset Jan 2024 Subjective Information pt was not seen this date. Assessment PT Clinical Summary Mony has received 3 PT sessions, from March 22 to April 03. Then she did not show for 1 and called/canceled 1 appointment. Discharge PT. The goals were not addressed. Plan of Care PT Services Indicated No
== END 2024-05-18 13:47 | disposition home or self-care (01) ==
LOC: ANHPT 08:15
PROVIDERS: PCP Family Medicine; Visit Provider Nurse Practitioner Obstetrics & Gynecology
DX: M54.16 Radiculopathy, lumbar region (principal); M54.30 Sciatica, unspecified side
CPT/HCPCS: 97110; 97140; 97161; 97530

== ENCOUNTER 2024-04-23 13:30 | Outpatient (CLI) | payer OTHER, SELFPAY ==
[2024-04-23 14:01] LABS: Basophils Percent Auto 0.2 % (0.2-1.2); Eosinophils Absolute Auto 0.2 K/mm3 (0-0.3); Eosinophils Percent Auto 1.8 % (0-4.4); Hematocrit 31.9 % (37.0-47.0); Hemoglobin 10.9 g/dL (12.0-15.0); Immature Granulocyte Absolute 0.09 K/mm3 (0.00-0.031); Immature Granulocyte Percent A 1.1 % (0-0.5); Lymphocytes Absolute Auto 1.54 K/mm3 (0.9-3.2); Mean Corpuscular HGB Conc 34.2 g/dl (32-36); Mean Corpuscular Hemoglobin 31.8 pg (26-34); Mean Platelet Volume 9.8 fl (7.4-10.4); Monocytes Absolute Auto 0.6 K/mm3 (0.1-0.6); Monocytes Percent Auto 7.1 % (2.6-8.5); Neutrophils Absolute Auto 6.2 K/mm3 (1.3-6.7); Neutrophils Percent Auto 71.8 % (45.5-73.1); Platelet Count Result 251 k/mm3 (150-375); Red Blood Count 3.43 M/mm3 (4.2-5.4); Red Cell Distribution Width 13.7 % (11.5-14.5); White Blood Count 8.6 K/mm3 (4.5-10.0)
[2024-04-23 14:51] LABS: HIV 1/2 Ab P24 Ag Result Negative (Negative)
[2024-04-24 10:07] LABS: Rapid Plasma Reagin Non-Reactive (NonReactive)
== END 2024-04-23 13:31 | disposition home or self-care (01) ==
LOC: ANHLAB 13:31
PROVIDERS: PCP Family Medicine; Visit Provider Nurse Practitioner Obstetrics & Gynecology
DX: Z34.90 Encounter for supervision of normal pregnancy, unspecified, unspecified trimester (principal)
CPT/HCPCS: 36415; 85025; 86592; 86703; G0432

== ENCOUNTER 2024-05-31 13:54 | Outpatient (RCR) | payer OTHER, SELFPAY ==
--- NOTE | ~2024-05-31 | US_ITS ---
EXAMINATION: US OB limited DATE: 05/31/2024 15:19 INDICATION: Polyhydramnios TECHNIQUE: Real-time ultrasound of the pelvis was performed. The interpreting radiologist was not pre sent for the study. COMPARISON: None. FINDINGS: There is a single living fetus in transverse lie presentation. The placenta is on the maternal left and not low-lying. heart rate is 148 beats per minute (bpm). The amniotic fluid index is 18.3 c m, which is normal (5th%-95%: 7.5-body 4.4 cm at 11 weeks estimated gestational age). V-shaped funnel ing of the internal cervical os which measures up to 5 mm diameter and with fluid extending 1 cm meg g the cephalad aspect of the endocervical canal. The remaining closed portion of the cervix measures 2.3 cm in length. IMPRESSION: 1. Single living fetus in adverse lie with heart rate of 148 bpm. 2. Normal amniotic fluid index of 18.3 cm. 3. V-shaped funneling of the internal cervical os with the remaining) of the cervix measuring 2.3 cm in length. Reviewed, dictated and finalized at location [facility]. X SYSTEM ADMINISTRATOR IMPRESSION: 1. Single living fetus in adverse lie with heart rate of 148 bpm. 2. Normal amniotic fluid index of 18.3 cm. 3. V-shaped funneling of the internal cervical os with the remaining) of the ce rvix measuring 2.3 cm in length.
[2024-05-31 15:17] VITALS: BP 106/64; PULSE 84
== END 2024-08-29 23:59 | disposition home or self-care (01) ==
LOC: ANHOBOP 13:54
PROVIDERS: PCP Family Medicine; Visit Provider Obstetrics & Gynecology
DX: O40.9XX0 Polyhydramnios, unspecified trimester, not applicable or unspecified (principal)
CPT/HCPCS: 59025; 76815

== ENCOUNTER 2024-06-14 01:07 | Inpatient (IN) | payer OTHER, SELFPAY ==
[2024-06-14] VITALS (173 sets, daily range): BP systolic 65–139; BP diastolic 34–96; PULSE 56–230; TEMP 36.1–37.1; O2SAT 85–100; BMI 33.2
--- OUTSIDE RECORDS SUMMARY | 2024-06-14 01:13 | XMS_ITS | Clinical Summary ---
Author Organization [facility] at the Medical Office Building Address [address] [place] [address] Care Team Providers Care Security Orderly Name Role Phone Durga Smith MD Primary Care Provider [phone] Tony Freire MD Unavailable [phone] Allergies No known active allergies Medications prenat.vits,robyn, quf-wyuz-ticqg tablet Take by mouth Active amoxicillin-clav ulanate (Augmentin) 875-125 mg per tablet Take 1 tablet by mouth 2 (two) times a day 20 tablet 08/15/2023 Active Active Problems Problem Noted Date Diagnosed Date Polyarthralgia 01/13/2023 Overview (01/31/2023): US right foot/ankle 01/26/23: Grade 2 effusion of the talonavicular joint Grade 1 power Doppler at the navicular cuneiform joint Tendon sheath effusion of the posterior tibialis tendon Grade 2 effusion of the 1st and 2nd MTPJ Grade 2 power Doppler just above the distal Achilles tendon which may represent peritendinitis Assessment & Plan (01/31/2023 4:30 PM CDT): Ms. Benavidez is a healthy 32yo female who presented at last visit for evaluation of her polyarthralgia complaints that began to occur in September of this year. At that time she was experiencing pain in her hands, feet and knees that was consistent throughout the day. Since that time she reports resolution of her knee pain. Her foot/hand pain is still present but to a lesser degree. Reports in the morning the first several steps are very painful but then this subsides. Initially she tried 200mg advil but noted no benefit and this was discontinued. Additional symptoms include fatigue and hair thinning that have been present before giving to her son. No contributory FH. A recent right foot/ankle US demonstrated grade 2 effusions of the talonavicular joint/1st-2nd MTP joints, grade 2 power doppler above the distal achilles tendon and grade 1 at the navicular cuneiform joint with a tendon sheath effusion of the posterior tibialis tendon. 09/2022 labs were reassuring with negative RF/CCP and ESR/CRP levels were wnl. She had no symptoms or exam findings at last visit that were concerning for a connective tissue disease and therefore an GURPREET profile was deferred. She does have an abnormal foot US but findings are nonspecific. At this time would recommend 400-600mg advil BID for at least 2-4 weeks with monitoring of symptoms. She was instructed to call the office if she begins to have GI upset or forgets the 2nd dose and meloxicam or celebrex could be sent in. To return sooner if NSAIDs do not improve symptoms otherwise return in 4 months. May cancel appointment if symptoms resolve. Seen with Dr. Freire. Assessment & Plan (01/13/2023 3:48 PM CDT): Ms. Benavidez is a healthy 32yo female who presents for evaluation of her polyarthralgia complaints that began to occur in September of this year. At that time she was experiencing pain in her hands, feet and knees that was consistent throughout the day. Since that time she reports resolution of her knee pain. Her foot/hand pain is still present but to a lesser degree. Reports in the morning the first several steps are very painful but then this subsides. Initially she tried 200mg advil but noted no benefit and this was discontinued. Additional symptoms include fatigue and hair thinning that have been present before giving to her son. No contributory FH. No synovitis on exam but reports the MCP and MTP joints are sore. 09/2022 RF/CCP were negative and ESR/CRP levels were wnl. She has no symptoms or exam findings that are concerning for a connective tissue disease and therefore will defer checking an GURPREET profile at this time. Her symptoms are less concerning for an autoimmune disease at this time however will obtain a right foot/ankle ultrasound to evaluate for any underlying inflammation. Encouraged her to try some plantar fasciitis stretches to see if this might relieve some of her initial foot pain when she gets up in the morning. Also discussed taking 400-600 mg Advil daily or at least before she starts walking to see if this alleviates the pain. Return in [address] Freire. Immunizations Name Administration Dates Next Due Influenza, Unspecified 06/23/2023(Deferr ed: Patient decision),12/31/2021(Deferred: Patient decision) Family History Medical History Relation Name Comments Heart disease Father Hypertension Father Diabetes Mother Relation Name Status Comments Brother 1 Alive Brother 2 Alive Brother 3 Alive Brother 4 Alive Father Alive Mother Alive Sister 1 Alive Sister 2 Alive Sister 3 Alive Sister 4 Alive Son Alive Social History Tobacco Use Types Packs/Day Years Used Date Smoking Tobacco: Never Smokeless Tobacco: Never Tobacco Cessation:Counseling Given: Not Answered Alcohol Use Standard Drinks/Week Comments Never 0 (1 standard drink = 0.6 oz pur e alcohol) AUDIT-C Answer Date Recorded Q1: How often do you have a drink containing alcohol? Never 06/24/2023 Q2: How many drinks containi ng alcohol do you have on a typical day when you are drinking? Patient does not drink Q3: How often do you have si x or more drinks on one occasion? Never 06/24/2023 PHQ-2 Answer Date Recorded PHQ-2 Total Score (If total score is 3 or more points, staff should administer the PHQ-9) 0 11/12/2022 Personal Safety Answer Date Recorded Getting School Help Needed Not on file 04/28 Comments Unknown Sex and Gender Information Value Date Recorded Sex Assigned at Not on file Legal Sex Female 12:49 AM [employer] Gender Identity Not on file Sexual Orientation Not on file Obstetrics History Last Filed Vital Signs Vital Sign Reading Time Taken Comments Blood Pressure 120/80 06/24/2023 12:42 PM [employer] SE[employer]ER Pulse 72 06/24/2023 12:42 PM [employer] SE[employer] Temperature 36.4 C (97.5 F) 06/24/2023 12:42 PM [employer] SE[employer]ER Respiratory Rate 18 06/24/2023 12:42 PM [employer] SEINER Oxygen Saturation 99% 06/24/2023 12:42 PM [employer] SEINER Inhaled Oxygen Concentration - - Weight 70.4 kg (155 lb 4.8 oz) 06/24/2023 12:42 PM [employer]SE SEINER Height 160 cm (5' 2.99 ) 06/24/2023 12:42 PM [employer] SE[employer]ER Body Mass Index 27.52 06/24/2023 12:42 PM [employer]SE SE[employer]ER Plan of Treatment Health Maintenance Due Date Last Done Comments Cervical Cancer Screening 1992 Hepatitis C Screening 1992 DTaP/Tdap/Td Vaccine (1 - Tdap) 08/22/2003 Varicella Vaccines (1 of 2 - 13+ 2-dose series) 2005 Hepatitis B Screening 2010 Depression Screening 11/13/2023 11/12/2022, 02/03/2021 Regular Well Visit/Exam 18-64 11/13/2023, 02/03/2021 Covid-19 Vaccine (3 - 2023-2 5 season) 2024 09/16/2020, 08/09/2020 Influenza Vaccine (#1) 2024 HPV Vaccines Aged Out No longer eligi ble based on patient's age to complete this topic Pneumococcal vaccine <65 Aged Out No longer eligible based on patient's age to complete this topic Insurance [facility] Care Teams Security Orderly Relationship Specialty Start Date End Date Durga Smith MD [address] [place] [address] PCP - General Family Medicine 10/12/18 Tony Freire MD [address] [place] [address] Consulting Physician Rheumatology 12/31/22
--- OUTSIDE RECORDS SUMMARY | 2024-06-14 01:13 | XMS_ITS | Clinical Summary ---
Author Organization [facility] Address [address] [place] [address] Care Team Providers Care World History Teacher Name Role Phone Unavailable Primary Care Provider Unavailabl e Allergies No known active allergies Medications No known medications Active Problems No known active problems Encounters Date Type Department Care Team Description 06/05/2024 1:30 PM CONCILIATOR - 06/05/2024 11:59 PM CONCILIATOR Hospital Encounter [facility] Maternal and Ground [address] [place] [address] Elver Finley MD Discharge Disposition: Home or Self Care 05/24/2024 External Device Data STL ABSTRACTION Provider, Abstract 05/22/2024 1:30 PM CONCILIATOR - 05/22/2024 11:59 PM CONCILIATOR Hospital Encounter [facility] Maternal and Ground Floor [address] [place] [address] Jose J Sullivan MD Discharge Disposition: Home or Self Care 05/22/2024 External Device Data STL ABSTRACTION Provider, Abstract 03/15/2024 7:30 AM CONCILIATOR - 03/15/2024 11:59 PM CONCILIATOR Hospital Encounter [facility] [address] [place] [id number] Jose J Sullivan MD Discharge Disposition: Home or Self Care from Last 3 Months Social History Tobacco Use Types Packs/Day Years Used Date Smoking Tobacco: Never Assessed Comments Unknown Sex and Gender Information Value Date Recorded Sex Assigned at Not on file Legal Sex Female 7:48 PM CONCILIATOR Gender Identity Not on file Sexual Orientation Not on file Last Filed Vital Signs Vital Sign Reading Time Taken Comments Blood Pressure 115/76 06/17/2020 7:58 PM CONCILIATOR Pulse 80 06/17/2020 7:58 PM CONCILIATOR Temperature 36.7 C (98.1 F) 06/17/2020 7:58 PM CONCILIATOR Respiratory Rate - - Oxygen Saturation 99% 06/17/2020 7:58 PM CONCILIATOR Inhaled Oxygen Concentration - - Weight - - Height - - Body Mass Index - - Plan of Treatment Health Maintenance Due Date Last Done Comments DTAP/TDAP/TD VACCINES (1 - Tdap) 08/22/2011 HEPATITIS B VACCINES (1 of 3 - 19+ 3-dose series) 08/22/2011 CERVICAL CANCER SCREENING 2022 INFLUENZA VACCINE (#1) 2023 Preventative Visit- Commercial 05/02/2024 11/12/2022, 02/03/2021 HPV VACCINES Aged Out No longer eligi ble based on patient's age to complete this topic Procedures Procedure Name Priority Date/Time Associated Diagnosis Comments US OB LTD 1 OR MORE FETUSES Routine 06/05/2024 2:05 PM CONCILIATOR Polyhydramnios affecting US OB FOLLOW UP PER FETUS Routine 05/22/2024 1:56 PM CONCILIATOR Encounter for ultrasound to assess growth Small for dates affecting management of mother, third trimester, fetus 1 US OB FOLLOW UP PER FETUS Routine 03/15/2024 7:57 AM CONCILIATOR Encounter for ultrasound to assess growth from Last 3 Months Results * US OB LTD 1 OR MORE FETUSES (06/05/2024 2:05 PM CONCILIATOR) Anatomical Region Laterality Modality Pelvis Ultrasound 06/05/2024 1:39 PM CONCILIATOR Narrative 06/05/2024 2:07 PM CONCILIATOR STL LIMITED ----- Pat. Name: LUIS BENAVIDEZ Study Date: 06/05/2024 1:39pm Pat. NO: [id number] Referring MD: JOSE J SULLIVAN MD Site: [facility] Deployment Engineer: Jameel Trevino RDMS : 1990 Age: 33 ----- INDICATION ----- Screening Follow-Up Polyhydramnios CODING ----- Diagnoses Z3A.38: Weeks of gestation Z36.2: Encounter for other screening follow-up O40.13XX0: Polyhydramnios Procedures 11926: Ultrasound, uterus, real time with image documentation, limited one or more fetuses HISTORY ----- OB History 3. Para 1 T1A1L1 METHOD ----- Transabdominal ultrasound examination ----- Luna . Number of fetuses: 1 DATING ----- Cycle: regular cycle GA by prior assessment 38 w + 1 d EMIL by prior assessment: 06/18/2024 Method of dating: Restore dating from previous exam Assigned: based on stated EMIL, selected on 01/30/2024 Assigned GA 38 w + 1 d Assigned EMIL: 06/18/2024 GENERAL EVALUATION ----- Cardiac activity present. FHR 145 bpm. movements: present. Presentation: breech Placenta: posterior Umbilical cord: Cord vessels: 3 vessel cord. Insertion site: placental insertion: normal Amniotic fluid: Amount of AF: normal amount. MVP 7.5 cm. JACK 22.6 cm. Q1 7.5 cm, Q2 7.2 cm, Q3 4.9 cm, Q4 3.1 cm ANATOMY ----- The following structures appear normal: Head / Neck Cranium. Heart / Thorax 4-chamber view. Cardiac rhythm. Abdomen Stomach. Kidneys. Bladder. GROWTH OVERVIEW ----- Exam date GA BPD (mm) HC (mm) AC (mm) FL (mm) HL (mm) EFW (g) 01/30/2024 20w 0d 46.5 52% 173.7 38% 143.1 33% 28.3 7% 28.8 31% 285 15% 03/15/2024 26w 3d 69.1 82% 252.3 57% 221.1 45% 44.8 4% 889 26% 05/22/2024 36w 1d 95.1 99% 345.1 95% 327.3 74% 65.2 3% 2,943 60% COMMENT ----- Patient's name and date of were verified by the manager of radiology prior to the exam. IMPRESSION ----- Luna @ 38w 1d referred for limited ultrasound for fluid check due to mild polyhydramnios on prior ultrasound. She had an ultrasound last week in her Ob office with normal fluid per her report, though we do not have these records. - The fetus is in breech lie. - Amniotic fluid indices are within normal limits. The patient has weekly ultrasounds scheduled in her Ob office. Further ultrasounds may be scheduled as clinically indicated. Thank you for allowing us to participate in the care of this patient. Procedure Note Catalina Uriostegui MD - 06/05/2024 STL LIMITED ----- Pat. Name:Vidhi BENAVIDEZ Date:06/05/2024 1:39pm Pat. NO: [id number] :JOSE J SULLIVAN MD [facility] Trev[facility] RDMS :1990Age:33 ----- INDICATION ----- Screening Follow-Up Polyhydramnios CODING ----- Diagnoses Z3A.38: Weeks of gestation Z36.2: Encounter for other screeningfollow-up O40.13XX0: Polyhydramnios Procedures 10090: Ultrasound, uterus, real time withimage documentation, limited one or more fetuses HISTORY ----- OB History 3. Para 1 T1A1L1 METHOD ----- Transabdominal ultrasound examination ----- Luna . Number of fetuses: 1 DATING ----- Cycle:regular cycle GA by prior unlyunsenj10 w + 1 d MEIL by prior assessment:06/18/2024 Method of dating:Restore dating from previous exam Assigned:based on stated EMIL, selected on 01/30/2024 Assigned GA38 w + 1 d Assigned EMIL:06/18/2024 GENERAL EVALUATION ----- Cardiac activity present. FHR 145 bpm. movements: present.Presentation: breech Placenta: posterior Umbilical cord: Cord vessels: 3 vessel cord. Insertion site: placentalinsertion: normal Amniotic fluid: Amount of AF: normal amount. MVP 7.5 cm. JACK 22.6 cm. Q17.5 cm, Q2 7.2 cm, Q3 4.9 cm, Q4 3.1 cm ANATOMY ----- The following structures appear normal: Head / Neck Cranium. Heart / Thorax 4-chamber view. Cardiac rhythm. Abdomen Stomach. Kidneys. Bladder. GROWTH OVERVIEW ----- Exam date GA BPD (mm) HC (mm) AC (mm) FL(mm) HL (mm) EFW (g) 01/30/2024 20w 0d 46.5 52% 173.7 38% 143.1 33%28.3 7% 28.8 31% 285 15% 03/15/2024 26w 3d 69.1 82% 252.3 57% 221.1 45%44.8 4% 889 26% 05/22/2024 36w 1d 95.1 99% 345.1 95% 327.3 74%65.2 3% 2,943 60% COMMENT ----- Patient's name and date of were verified by the manager of radiology prior tothe exam. IMPRESSION ----- Luna @ 38w 1d referred for limited ultrasound for fluidcheck due to mild polyhydramnios on prior ultrasound. She had an ultrasound last week in her Ob office with normal fluid per herreport, though we do not have these records. - The fetus is in breech lie. - Amniotic fluid indices are within normal limits. The patient has weekly ultrasounds scheduled in her Ob office. Further ultrasounds may be scheduled as clinically indicated. Thank you for allowing us to participate in the care of this patient. us Elver Finley MD US ORDERABLES Final Re sult * US OB FOLLOW UP PER FETUS (05/22/2024 1:56 PM CONCILIATOR) Only the most recent of2 resultswithin the time period is included. Anatomical Region Laterality Modality Pelvis Ultrasound 05/22/2024 2:37 PM CONCILIATOR Narrative 05/22/2024 2:10 PM CONCILIATOR STL FOLLOW UP ----- Pat. Name: LUIS BENAVIDEZ Study Date: 05/22/2024 2:37pm Pat. NO: [id number] Referring MD: JOSE J SULLIVAN MD Site: [facility] Deployment Engineer: Nimisha Alex RDMS : 1990 Age: 33 ----- INDICATION ----- Screening Follow-Up Small for Dates CODING ----- Diagnoses Z3A.36: Weeks of gestation O36.5930: Maternal care for other known or suspected poor growth Z36.2: Encounter for other screening follow-up Procedures 72197: Ultrasound, uterus, real time with image documentation, follow up, transabdominal approach per fetus HISTORY ----- OB History 3. Para 1 T1A1L1 METHOD ----- Transabdominal ultrasound examination ----- Luna . Number of fetuses: 1 DATING ----- Cycle: regular cycle GA by prior assessment 36 w + 1 d EMIL by prior assessment: 06/18/2024 Ultrasound examination on: 05/22/2024 GA by U/S based upon: AC, BPD, EFW, Femur, HC GA by U/S 37 w + 1 d EMIL by U/S: 06/11/2024 Method of dating: Restore dating from previous exam Assigned: based on stated EMIL, selected on 01/30/2024 Assigned GA 36 w + 1 d Assigned EMIL: 06/18/2024 BIOMETRY ----- BPD 95.1 mm 38w 6d 99% Hadlock OFD 121.6 mm -/- >99% Erin HC 345.1 mm 39w 6d 95% Hadlock AC 327.3 mm 36w 4d 74% Hadlock Femur 65.2 mm 33w 4d 3% Hadlock HC / AC 1.05 67% Nicolaides Weight Calculation: EFW 2,943 g 36w 4d 60% Hadlock EFW (lb,oz) 6 lb 8 oz EFW by Hadlock ([id number]) Extremities / Bony Struc Biometry: FL / BPD 0.69 FL / HC 0.19 FL / AC 0.20 GENERAL EVALUATION ----- Cardiac activity present. FHR 155 bpm. movements: present. Presentation: cephalic Placenta: Placental site: posterior Umbilical cord: Cord vessels: 3 vessel cord. Insertion site: placental insertion: normal Amniotic fluid: Amount of AF: polyhydramnios. MVP 10.0 cm. JACK 28.5 cm. Q1 10.0 cm, Q2 4.6 cm, Q3 6.2 cm, Q4 7.7 cm ANATOMY ----- The following structures appear normal: Head / Neck Cranium. Heart / Thorax 4-chamber view. RVOT view. LVOT view. Diaphragm. Abdomen Stomach. Kidneys. Bladder. GROWTH OVERVIEW ----- Exam date GA BPD (mm) HC (mm) AC (mm) FL (mm) HL (mm) EFW (g) 01/30/2024 20w 0d 46.5 52% 173.7 38% 143.1 33% 28.3 7% 28.8 31% 285 15% 03/15/2024 26w 3d 69.1 82% 252.3 57% 221.1 45% 44.8 4% 889 26% 05/22/2024 36w 1d 95.1 99% 345.1 95% 327.3 74% 65.2 3% 2,943 60% COMMENT ----- Patient's name and date of were verified by the manager of radiology prior to the exam IMPRESSION ----- Viable at 36 weeks gestation. Ultrasound was requested due to fundal height less than dates and concerns for growth restriction. Patient reports normal screening for gestational diabetes Cephalic presentation Normal growth Estimated weight at the 60th percentile with abdominal circumference at the 74th percentile No structural malformations were identified within the limitations of late ultrasound Normal fluid-filled stomach was noted Mild polyhydramnios is noted. Posterior placenta with normal placental cord insertion appreciated. Placenta is not low-lying. Ultrasound findings were discussed with patient her partner. Patient was informed of the finding of mild polyhydramnios. We discussed possible etiologies of polyhydramnios. No cause for polyhydramnios was noted. Patient reports normal screening for gestational diabetes. Mild idiopathic polyhydramnios is typically associated with a favorable outcome and is not indication for testing or early delivery. If moderate to severe polyhydramnios develops testing can/or early delivery may be indicated. Questions were addressed. Limited ultrasound was scheduled in 2 weeks to assess amniotic fluid Procedure Note Elver Finley MD - 05/22/2024 STL FOLLOW UP ----- Pat. Name:Vidhi BENAVIDEZ Date:05/22/2024 2:37pm Pat. NO: [id number] MD:JOSE J SULLIVAN MD [facility]Nimisha Alex RDMS :1990Age:33 ----- INDICATION ----- Screening Follow-Up Small for Dates CODING ----- Diagnoses Z3A.36: Weeks of gestation O36.5930: Maternal care for other known orsuspected poor growth Z36.2: Encounter for other screeningfollow-up Procedures 89471: Ultrasound, uterus, real time withimage documentation, follow up, transabdominal approach per fetus HISTORY ----- OB History 3. Para 1 T1A1L1 METHOD ----- Transabdominal ultrasound examination ----- Luna . Number of fetuses: 1 DATING ----- Cycle:regular cycle GA by prior w + 1 d EMIL by prior assessment:06/18/2024 Ultrasound examination on:05/22/2024 GA by U/S based upon:AC, BPD, EFW, Femur, HC GA by U/S37 w + 1 d EMIL by U/S:06/11/2024 Method of dating:Restore dating from previous exam Assigned:based on stated EMIL, selected on 01/30/2024 Assigned GA36 w + 1 d Assigned EMIL:06/18/2024 BIOMETRY ----- BPD 95.1 mm 38w 6d 99%Hadlock OFD 121.6 mm -/- >99%Erin HC 345.1 mm 39w 6d 95%Hadlock AC 327.3 mm 36w 4d 74%Hadlock Femur 65.2 mm 33w 4d 3%Hadlock HC / AC 1.05 67%Nicolaides Weight Calculation: EFW 2,943 g 36w 4d60% Hadlock EFW (lb,oz) 6 lb 8 oz EFW by Hadlock ([id number]) Extremities / Bony Struc Biometry: FL / BPD 0.69 FL / HC 0.19 FL / AC 0.20 GENERAL EVALUATION ----- Cardiac activity present. FHR 155 bpm. movements: present.Presentation: cephalic Placenta: Placental site: posterior Umbilical cord: Cord vessels: 3 vessel cord. Insertion site: placentalinsertion: normal Amniotic fluid: Amount of AF: polyhydramnios. MVP 10.0 cm. JACK 28.5 cm. Q110.0 cm, Q2 4.6 cm, Q3 6.2 cm, Q4 7.7 cm ANATOMY ----- The following structures appear normal: Head / Neck Cranium. Heart / Thorax 4-chamber view. RVOT view. LVOT view. Diaphragm. Abdomen Stomach. Kidneys. Bladder. GROWTH OVERVIEW ----- Exam date GA BPD (mm) HC (mm) AC (mm) FL(mm) HL (mm) EFW (g) 01/30/2024 20w 0d 46.5 52% 173.7 38% 143.1 33%28.3 7% 28.8 31% 285 15% 03/15/2024 26w 3d 69.1 82% 252.3 57% 221.1 45%44.8 4% 889 26% 05/22/2024 36w 1d 95.1 99% 345.1 95% 327.3 74%65.2 3% 2,943 60% COMMENT ----- Patient's name and date of were verified by the manager of radiology prior tothe exam IMPRESSION ----- Viable at 36 weeks gestation. Ultrasound was requested due tofundal height less than dates and concerns for growth restriction. Patient reports normal screening for gestationaldiabetes Cephalic presentation Normal growth Estimated weight at the 60th percentile with abdominal circumferenceat the 74th percentile No structural malformations were identified within the limitationsof late ultrasound Normal fluid-filled stomach was noted Mild polyhydramnios is noted. Posterior placenta with normal placental cord insertion appreciated.Placenta is not low-lying. Ultrasound findings were discussed with patient her partner. Patient wasinformed of the finding of mild polyhydramnios. We discussed possible etiologies of polyhydramnios. No cause forpolyhydramnios was noted. Patient reports normal screening for gestational diabetes. Mild idiopathic polyhydramnios is typicallyassociated with a favorable outcome and is not indication for testing or early delivery. If moderate to severe polyhydramniosdevelops testing can/or early delivery may be indicated. Questions were addressed. Limited ultrasound was scheduled in 2 weeks to assess amniotic fluid us Jose J Sullivan MD ORDERABLES Final Result from Last 3 Months Insurance [employer] P[employer]
--- OUTSIDE RECORDS SUMMARY | 2024-06-14 01:13 | XMS_ITS | Referral Summary ---
Author Organization [facility] Address [address] [place] [address] Care Team Providers Care Slab Off Mill Tender Name Role Phone Durga Smith MD Primary Care Provider [phone] Tony Freire MD Unavailable Allergies No known active allergies Medications prenat.vits,robyn, hsi-dtco-tlhub tablet Take by mouth Active amoxicillin-clav ulanate [...] Unspecified 06/23/2023(Deferr ed: Patient decision),12/31/2021(Deferred: Patient decision) Social History Tobacco Use Types Packs/Day Years [...] on file Legal Sex Female 12:49 AM INTERNET DEVELOPER Gender Identity Not on file Sexual Orientation Not on file Last Filed Vital Signs Vital Sign Reading Time Taken Comments Blood Pressure 120/80 06/24/2023 12:42 PM INTERNET DEVELOPER Pulse 72 06/24/2023 12:42 PM INTERNET DEVELOPER Temperature 36.4 C (97.5 F) 06/24/2023 12:42 PM INTERNET DEVELOPER Respiratory Rate 18 06/24/2023 12:42 PM INTERNET DEVELOPER Oxygen Saturation 99% 06/24/2023 12:42 PM INTERNET DEVELOPER Inhaled Oxygen Concentration - - Weight 70.4 kg (155 lb 4.8 oz) 06/24/2023 12:42 PM INTERNET DEVELOPER Height 160 cm (5' 2.99 ) 06/24/2023 12:42 PM INTERNET DEVELOPER Body Mass Index 27.52 06/24/2023 12:42 PM INTERNET DEVELOPER Plan of Treatment Not on file Insurance [facility] Care Teams Slab Off Mill Tender Relationship Specialty Start Date End Date Durga Smith MD [address] [facility] [address] [address] PCP - General Family Medicine 10/12/18 Tony Freire MD [address] [place] [address] Consulting Physician Rheumatology 12/31/22
--- NOTE | 2024-06-14 01:50 | LDADM ---
This patient, Mony Reyes, was admitted to Labor/Delivery/Recovery 104 on 06/14/24 at 01:07. Plans for labor, pain management and were discussed with patient. Patient/family oriented to hospital policies and general routines including ID bracelet, bed and alarms, visiting hours, pain management, procedures, bathroom and other care routines, personal items, smoking policy, room service/diet and guest tray routines, infant security routines, and visiting hours. Patient/Family are encouraged to report perceived risks to care and to ask questions if they do not understand what they are told or what they should do. See OBIX for further documentation.
[2024-06-14 01:58] LABS: Basophils Percent Auto 0.2 % (0.2-1.2); Eosinophils Absolute Auto 0.2 K/mm3 (0-0.3); Eosinophils Percent Auto 1.6 % (0-4.4); Hematocrit 34.3 % (37.0-47.0); Immature Granulocyte Absolute 0.06 K/mm3 (0.00-0.031); Immature Granulocyte Percent A 0.6 % (0-0.5); Lymphocytes Absolute Auto 2.07 K/mm3 (0.9-3.2); Lymphocytes Percent Auto 20.6 % (18.3-44.2); Mean Corpuscular Hemoglobin 32.3 pg (26-34); Mean Corpuscular Volume 92.2 fl (80-100); Mean Platelet Volume 10.6 fl (7.4-10.4); Monocytes Absolute Auto 0.7 K/mm3 (0.1-0.6); Monocytes Percent Auto 7.3 % (2.6-8.5); Neutrophils Percent Auto 69.7 % (45.5-73.1); Platelet Count Result 238 k/mm3 (150-375); Red Blood Count 3.72 M/mm3 (4.2-5.4); Red Cell Distribution Width 13.5 % (11.5-14.5); White Blood Count 10.1 K/mm3 (4.5-10.0)
[2024-06-14] MEDS: miSOPROStol 25 MCG TABLET BUCCAL ×2 (02:14→06:32)
[2024-06-14 02:40] LABS: HIV 1/2 Ab P24 Ag Result Negative (Negative)
[2024-06-14 03:56] LABS: Rapid Plasma Reagin Non-Reactive (NonReactive)
--- NOTE | 2024-06-14 08:03 | P.PNAN_ITS ---
Anes - Eval Pre Procedure Procedure: labor epidural Date/Time: 06/14/24 08:03 Surgeon: le Preop Diagnosis: pain during labor Pre Op Diagnosis: IOL Patient Data Age: 33 Gender: F Height: 1.6 m Weight: 85 kg Last Vital Signs Temp 36.6 C 06/14/24 06:33 Pulse 87 06/14/24 07:31 BP 100/57 L 06/14/24 07:31 O2 Del Method Room Air 06/14/24 01:50 Allergies Allergy/AdvReac Type Severity Reaction Status Date / Time No Known Allergies Allergy Verified 06/14/24 01:58 Home Medications ?Medication ?Instructions ?Recorded ?Confirmed ?Type prenat.vits,robyn,gxn-rtns-fmrly 1 tablet PO DAILY 12/22/21 06/14/24 History ferrous sulfate 325 mg (65 mg 325 mg PO DAILY 05/21/24 06/14/24 History iron) tablet Laboratory Tests 06/14/24 01:22 WBC 10.1 H K/mm3 (4.5-10.0) RBC 3.72 L M/mm3 (4.2-5.4) Hgb 12.0 g/dL (12.0-15.0) Hct 34.3 L % (37.0-47.0) MCV 92.2 fl (80-100) MCH 32.3 pg (26-34) MCHC 35.0 g/dl (32-36) RDW 13.5 % (11.5-14.5) Plt Count 238 k/mm3 (150-375) MPV 10.6 H fl (7.4-10.4) Immature Gran % (Auto) 0.6 H % (0-0.5) Neut % (Auto) 69.7 % (45.5-73.1) Lymph % (Auto) 20.6 % (18.3-44.2) Carbon % (Auto) 7.3 % (2.6-8.5) Eos % (Auto) 1.6 % (0-4.4) Baso % (Auto) 0.2 % (0.2-1.2) Lymph # (Auto) 2.07 K/mm3 (0.9-3.2) Carbon # (Auto) 0.7 H K/mm3 (0.1-0.6) Eos # (Auto) 0.2 K/mm3 (0-0.3) Baso # (Auto) 0.0 K/mm3 (0.0-0.1) Abs Immat Gran (auto) 0.06 H K/mm3 (0.00-0.031) Absolute Neuts (auto) 7.0 H K/mm3 (1.3-6.7) Absolute Nucleated RBC 0.000 K/mm3 (0.0-0.012) Nucleated RBC % 0.0 % (0.0-0.2) RPR Non-reactive (NonReactive) HIV 1&2 Ab/P24 Ag 4thGn Negative (Negative) Blood Type B Positive Antibody Screen Negative Patient hx anesthesia problems: none Family hx anesthesia problems: none Results Review: All pre-operative results and documents have been reviewed as part of the pre- operative evaluation. [facility] Past Medical History Medical History (Updated 06/14/24 @ 08:04 by Renetta Schafer CRNA) Obesity IUP (intrauterine ), incidental No active medical problems Surgical History Surgical History (Reviewed 06/12/24 @ 13:49 by Albina Montejo [facility]) [place] teeth removed Family History Family History (Reviewed 06/12/24 @ 13:49 by Albina Montejo [facility]) Father Hypertension Heart disease Mother Diabetes mellitus Social History Social History (Reviewed 06/12/24 @ 13:49 by Albina Montejo [facility]) Smoking status: Never smoker Second hand tobacco smoke exposure: No Alcohol intake: never Substance use: never Do You Feel Safe in your Home?: Yes Lack of Transportation: No Lack of Food: Never True Current Housing: I Have Housing Concerned About Future Housing: No Difficulty Paying Gas/Electric Bills: No Difficulty Paying for Meds: No Currently Unemployed: No Education: Master's Degree or Higher Difficulty w/ Childcare or Family Care: No Living arrangements: with family Spiritual care concerns: No Exam Day of Procedure 06/14/24 08:03
[2024-06-14] MEDS: OXYTOCIN 30 UNITS/NS 500 ML 30 UNITS/500 ML BAG IV CONT (10:18)
[2024-06-14] MEDS: LACTATED RINGERS 1,000 ML 125 ML IV CONT ×3 (10:18→17:26)
--- NOTE | 2024-06-14 12:57 | PM.IMHP ---
H&P: HPI History of Present Illness Date/Time: 06/14/24 12:57 Chief Complaint: Induction of labor Narrative: She is a 33 y/o at 39 weeks admitted for [facility]. History significant for unstable lie. Fetus vertex at last visit. She was informed of risk benefit of induction of labor vs spontaneous labor. The rest of course uncomplicated. Ultrasound at bedside confirmed vertex. Review of Systems Review of Systems: All systems reviewed & are unremarkable except as noted in HPI and below Constitutional: Constitutional: Reports no additional constitutional complaints and Denies headache(s) Eyes: Eyes: Denies spots in vision ENT: Reports system reviewed and no additional complaints, except as documented and Denies headache(s) Cardiovascular: Cardiovascular: Denies chest pain and Denies dyspnea Respiratory: Respiratory: Denies dyspnea Gastrointestinal: Gastrointestinal: Reports no additional gastrointestinal complaints Genitourinary: Genitourinary: Reports amenorrhea Musculoskeletal: Musculoskeletal: Reports no additional musculoskeletal complaints Integumentary/Breasts: Skin/Breast: Denies breast mass and Denies rash Neurologic: Denies headache(s) Psychiatric: Psychiatric: Reports no additional psychiatric complaints [facility] Past Medical History Medical History Obesity IUP (intrauterine ), incidental No active medical problems Surgical History Surgical History Chauncey teeth removed Family History Family History Father Hypertension Heart disease Mother Diabetes mellitus Social History Social History Smoking status: Never smoker Second hand tobacco smoke exposure: No Alcohol intake: never Substance use: never Do You Feel Safe in your Home?: Yes Lack of Transportation: No Lack of Food: Never True Current Housing: I Have Housing Concerned About Future Housing: No Difficulty Paying Gas/Electric Bills: No Difficulty Paying for Meds: No Currently Unemployed: No Education: Master's Degree or Higher Difficulty w/ Childcare or Family Care: No Living arrangements: with family Spiritual care concerns: No Meds Home Medications and Allergies Home Medications ?Medication ?Instructions ?Recorded ?Confirmed ?Type prenat.vits,robyn,zgh-bkef-lhpwz 1 tablet PO DAILY 12/22/21 06/14/24 History ferrous sulfate 325 mg (65 mg 325 mg PO DAILY 05/21/24 06/14/24 History iron) tablet Allergies Allergy/AdvReac Type Severity Reaction Status Date / Time No Known Allergies Allergy Verified 06/14/24 01:58 Vital Signs Vital Signs - 24 hr 06/14/24 01:50 06/14/24 02:00 06/14/24 02:01 Temperature 97.2 F L Pulse Rate 94 Blood Pressure 102/64 Oxygen Delivery Room Air 06/14/24 02:30 06/14/24 03:00 06/14/24 03:30 Temperature Pulse Rate 92 85 92 Blood Pressure 96/64 L 98/69 L 108/65 Oxygen Delivery 06/14/24 04:00 06/14/24 04:04 06/14/24 04:30 Temperature Pulse Rate 86 84 87 Blood Pressure 102/68 98/71 L Oxygen Delivery 06/14/24 05:00 06/14/24 05:30 06/14/24 06:00 Temperature Pulse Rate 103 H 93 94 Blood Pressure 93/64 L 98/84 L 99/63 L Oxygen Delivery 06/14/24 06:33 06/14/24 07:00 06/14/24 07:31 Temperature 97.8 F Pulse Rate 94 87 Blood Pressure 99/62 L 100/57 L Oxygen Delivery 06/14/24 08:04 06/14/24 08:30 06/14/24 09:00 Temperature Pulse Rate 90 89 87 Blood Pressure 95/56 L 95/57 L 97/65 L Oxygen Delivery 06/14/24 09:30 06/14/24 10:22 06/14/24 10:24 Temperature 97.3 F L Pulse Rate 86 92 Blood Pressure 102/63 106/68 Oxygen Delivery 06/14/24 10:30 06/14/24 11:00 06/14/24 11:30 Temperature Pulse Rate 103 H 98 100 Blood Pressure 98/57 L 101/63 104/67 Oxygen Delivery 06/14/24 12:00 06/14/24 12:30 Temperature Pulse Rate 101 H 84 Blood Pressure 109/66 104/66 Oxygen Delivery Exam Const: General: no acute distress Eyes: General: appearance normal, both eyes and all related structures Resp: Effort & Inspection: normal respiratory effort Cardio: Rate: regular rate GI: Other: Gravid no fundal tenderness no right upper quadrant pain Skin: General skin exam: no rashes or lesions noted Neuro: Cognition (Neuro): normal cognition Extrem: General: normal to inspection Psych: Mental Status: mental status grossly normal H&P: Results Labs Labs: Short CBC 06/14/24 Range/Units 01:22 WBC 10.1 H (4.5-10.0) K/mm3 Hgb 12.0 (12.0-15.0) g/dL Hct 34.3 L (37.0-47.0) % Plt Count 238 (150-375) k/mm3 Assessment and Plan Assessment and plan (1) Elective induction of labor planned: Status: Acute Assessment and Plan: 1. Admit 2. Cytotec.
[2024-06-14] MEDS: PHENYLEPHRINE 1,000 MCG/10 ML SYRINGE 100 MCG IV PUSH (14:37)
[2024-06-14] MEDS: ONDANSETRON INJ 4 MG/2 ML VIAL IV PUSH (20:57)
[2024-06-14] MEDS: OXYTOCIN 30 UNITS/NS 500 ML 30 UNITS/500 ML BAG 999 UNITS IV CONT (21:14)
[2024-06-14] MEDS: METHYLERGONOVINE MALEATE 0.2 MG/ML VIAL IM (21:24)
[2024-06-14] MEDS: miSOPROStol 200 MCG TABLET 800 MCG RECTAL (21:32)
[2024-06-14] MEDS: OXYTOCIN 30 UNITS/NS 500 ML 30 UNITS/500 ML BAG 125 UNITS IV CONT (21:38)
--- NOTE | 2024-06-14 21:44 | P.PCNOB_ITS ---
OB - Vaginal Delivery Note Procedure Delivery date: 06/14/24 Induction method: Per Misoprostol Protocol Delivery augmentation: Rupture of Membranes Delivery monitor: External FHT and Internal Uterine Route of delivery: Laceration Description: Perineal - 2nd Degree Delivery repair: vicryl (3.0 vicryl) Specimen: No Quantitative Blood Loss (ml): 350 Anesthesia type: Epidural Disposition: Floor Complications: No immediate complications Narrative: She was admitted for [facility]. She had unstable lie. Cytotec initiated. She had vertex confirmation. She received two doses of cytotec. Pitocin started. She had AROM. Light meconium. She continued to progress to active labor and complete. She pushed and delilvered a male infant. Nose and mouth suctioned at perineum. The shoulders were delivered and the rest of the baby delivered and infant was vigorously crying and placed on maternal abdomen. Delayed cord clamping for one minute which was when cord was apulsatile and then cord clamped and cut. Pitocin started. Placenta delivered. She had intermittent uterine atony, uterine massage performed and cleared lower uterine segment of clot. Methergine was given. Hypotonia improved but still was intermittent hypotonia and 800mcg of cytotec given rectally. Uterine tone improved and was sustained. Perineal laceration repaired with 3.0 vicryl. [place] Baby Date of : 06/14/24 Time of : 21:10 Gestational Age by Date: 39 gender: Male presentation: vertex position: Left Occiput Anterior Placenta delivery description: Spontaneous Cord Vessel Description: 3 Vessels and Delayed Cord Clamping score one minute: 9 score five minutes: 9
--- NOTE | 2024-06-14 21:44 | PM.OBPNLAB ---
Pain Control Date/time seen: 06/14/24 1640 cat 1, AROM, /-2, light mec. Continue pitocin.
[2024-06-14] MEDS: WITCH HAZEL 40 PADS 1 PAD TOPICAL (23:41)
[2024-06-14] MEDS: BENZOCAINE 20% AER SPR (*SP) 56 GM CAN 1 SPRAY TOPICAL (23:41)
[2024-06-14] MEDS: IBUPROFEN 600 MG TABLET PO (23:55)
[2024-06-14] MEDS: ACETAMINOPHEN 325 MG TABLET 650 MG PO (23:56)
--- NOTE | 2024-06-15 01:01 | OBPPTRN ---
Patient transferred to post room #292 via W/C. Support person present. Oriented to unit, room, information board, rooming in, admission packet and security measures. Patient verbalizes understanding.
[2024-06-15 01:20] VITALS: BP 110/70; PULSE 84; RESP 16; TEMP 37.2; O2SAT 99
[2024-06-15 04:15] VITALS: BP 100/64; PULSE 73; RESP 18; TEMP 37.2; O2SAT 99
[2024-06-15 05:07] LABS: Hematocrit 32.9 % (37.0-47.0); Hemoglobin 11.3 g/dL (12.0-15.0)
[2024-06-15] MEDS: MULTIVIT/MIN/PREN/FOL AC/IRON TABLET 1 TAB PO (06:47)
[2024-06-15] MEDS: ACETAMINOPHEN 325 MG TABLET 650 MG PO ×3 (06:47→20:22)
[2024-06-15] MEDS: IBUPROFEN 600 MG TABLET PO ×3 (06:47→20:23)
--- NOTE | 2024-06-15 08:06 | WPDANLDPN2 ---
Anes-Prog Note L&D Date/Time: 06/15/24 08:06 Comfortable throughout: labor and delivery Neuraxial method: epidural Epidural/Spinal procedure site: clean & non-tender Neuro status: Neuro function grossly intact. Cardiovascular status: normal Respiratory status: normal Airway patency: baseline Mental status: baseline Post-Op hydration status: normal Vital Signs: Last Vital Signs Temp 37.2 C 06/15/24 04:15 Pulse 73 06/15/24 04:15 Resp 18 06/15/24 04:15 BP 100/64 06/15/24 04:15 Pulse Ox 99 06/15/24 04:15 O2 Del Method Room Air 06/15/24 01:20 Pain score (VAS): 05/11 I/O: Intake & Output 06/14/24 06/15/24 06/15/24 23:59 07:59 15:59 Intake Total 514.6 Output Total 350 100 Balance 164.6 -100 Post-procedural complaints: none Patient feedback: Patient satisfied with anesthetic care.
[2024-06-15 08:10] VITALS: BP 102/69; PULSE 91; RESP 18; TEMP 36.7; O2SAT 99
--- NOTE | 2024-06-15 10:27 | P.PNOB_ITS ---
OB - PN: Subj Subjective Date/time seen: 06/15/24 10:27 Patient comments: pain well controlled, tolerating diet and other (Decreasing lochia.) baby status: doing well and nursing well [place] feeding status: exclusively breast feeding OB - PN: Obj Data Labs 06/15/24 04:16 Labs: Laboratory Results - last 24 hr 06/15/24 04:16 Hgb 11.3 L Hct 32.9 L OB - PN A/P Assessment and Plan (1) Delivery normal: Code(s): O80 - Encounter for full-term uncomplicated delivery Status: Acute Plan day: 1 Plan: routine care Comments: Patient doing well. Time Spent With Patient Time: Total time spent is greater than 50% in coordination of care (as documented) at patient's floor/unit and/or counseling patient: Exam 2 Psych: Affect: normal affect Other: Abd: fundus firm below umbilicus, nontender Perineum: healing Ext: nontender
[2024-06-15] MEDS: DOCUSATE SODIUM 100 MG CAPSULE PO ×2 (12:30→21:15)
[2024-06-15 12:45] VITALS: BP 100/59; PULSE 80; RESP 18; TEMP 36.2; O2SAT 100
--- NOTE | 2024-06-15 16:15 | PC.NURSE ---
Introductions were made, then consulted with patient to assess needs related to . Mother states that feeding is going well so far. She declines having any questions or concerns. Resources provided for inpatient and outpatient services with the feeding sheet, mom/baby guide and name written on the communication board. Mother voiced understanding of information and will call if there is a request for assistance. Reported to the Primary RN.
[2024-06-15 20:00] VITALS: BP 99/55; PULSE 75; RESP 16; TEMP 36.8; O2SAT 99
[2024-06-16] MEDS: LANOLIN (LANSINOH) 7.5 GM CREAM 1 APPLIC TOPICAL (04:13)
[2024-06-16] MEDS: IBUPROFEN 600 MG TABLET PO (06:17)
[2024-06-16] MEDS: ACETAMINOPHEN 325 MG TABLET 650 MG PO (06:17)
--- NOTE | 2024-06-16 08:05 | PC.NURSE ---
Mother verbalizes she is able to independently latch with appropriate positioning and alignment. She denies any nipple discomfort and is responsively . Mother says she does have her own breast pump at home if needed, RN offered to measure her nipples for the flange size and mother declined. is currently meeting outcomes for weight, output, jaundice, blood sugar and feeding frequencies of 8-12 times in 24 hours. Reinforced understanding of milk production, transition of milk, signs of adequate intake, transition of stool, prevention/relief of engorgement, plugged ducts, mastitis, responsive watching for feeding cues, the different methods of stimulating infant to breastfeed 1-3 hours after the start of the last feeding, community resources, and when to call a provider using the resource of the feeding sheet along with the mom and baby guide. Mother voiced understanding of the information shared, is confident to continue effectively her infant at home, when to call for assistance, denies any additional assistance or education at this time. Mother voiced understanding of information shared along with the mom/baby guide for an additional resource. Reported to the Primary RN.
[2024-06-16 08:50] VITALS: BP 90/52; PULSE 78; RESP 16; TEMP 36.5; O2SAT 97
[2024-06-16] MEDS: MULTIVIT/MIN/PREN/FOL AC/IRON TABLET 1 TAB PO (08:53)
[2024-06-16] MEDS: DOCUSATE SODIUM 100 MG CAPSULE PO (08:53)
--- NOTE | 2024-06-16 10:00 | PM.OBDSVD ---
DS: Admitting Diagnosis Discharge Date 06/16/23 <Rodolfo Reed MD - Last Filed: 06/16/24 15:37> Admitting Diagnosis Induction of labor. Unstable lie. <Rodolfo Reed MD - Last Filed: 06/16/24 15:37> DS: Discharge Diagnosis Discharge Diagnosis (1) Delivery normal: Code(s): O80 - Encounter for full-term uncomplicated delivery <Rodolfo Reed MD - Last Filed: 06/16/24 15:37> Status: Acute <Rodolfo Reed MD - Last Filed: 06/16/24 15:37> OB - DS: Summary Hospital Course Hospital Course: She was admitted for induction of labor. She had a vaginal delivery. She did well . Baby did well . She was discharged to home on day 2. <Rodolfo Reed MD - Last Filed: 06/16/24 15:37> OB Procedures : Ultrasound <Rodolfo Reed MD - Last Filed: 06/16/24 15:37> OB Procedures Intrapartum: Spontaneous Vag Delivery <Rodolfo Reed MD - Last Filed: 06/16/24 15:37> OB Procedures: : None <Rodolfo Reed MD - Last Filed: 06/16/24 15:37> Peripartum Data Delivery Method: Natural Vaginal <Rodolfo Reed MD - Last Filed: 06/16/24 15:37> Laceration Description: Perineal - 2nd Degree <Rodolfo Reed MD - Last Filed: 06/16/24 15:37> complications: none <Rodolfo Reed MD - Last Filed: 06/16/24 15:37> Status at Discharge Functional status at discharge: independent ambulation <Rodolfo Reed MD - Last Filed: 06/16/24 15:37> Overall status at discharge: patient is back to baseline <Doris Raya MD - Last Filed: 06/16/24 10:00> Time Spent with Patient Time attestation: Total time spent providing and/or coordinating discharge services: <Rodolfo Reed MD - Last Filed: 06/16/24 15:37> Exam Const: General: cooperative <Rodolfo Reed MD - Last Filed: 06/16/24 15:37> Orientation/consciousness: oriented to person, oriented to place and oriented to time <Rodolfo Reed MD - Last Filed: 06/16/24 15:37> HENMT: Face/Nose/Sinus: Normal external nose present <Rodolfo Reed MD - Last Filed: 06/16/24 15:37> Eyes: General: appearance normal, both eyes and all related structures <Rodolfo Reed MD - Last Filed: 06/16/24 15:37> Resp: Effort & Inspection: normal respiratory effort <Rodolfo Reed MD - Last Filed: 06/16/24 15:37> Auscultation: clear to auscultation bilaterally <Doris Raya MD - Last Filed: 06/16/24 10:00> Cardio: Rate: regular rate <Doris Raya MD - Last Filed: 06/16/24 10:00> GI: Inspection: normal to inspection <Rodolfo Reed MD - Last Filed: 06/16/24 15:37> GI Palp: No abdominal tenderness and Yes Soft to palpation <Doris Raya MD - Last Filed: 06/16/24 10:00> Auscultation: normal bowel sounds <Doris Raya MD - Last Filed: 06/16/24 10:00> : Other: fundus firm <Doris Raya MD - Last Filed: 06/16/24 10:00> Skin: General skin exam: normal color <Rodolfo Reed MD - Last Filed: 06/16/24 15:37> Neuro: General: oriented to person, oriented to place and oriented to time <Rodolfo Reed MD - Last Filed: 06/16/24 15:37> Extrem: General: normal to inspection and no calf tenderness <Rodolfo Reed MD - Last Filed: 06/16/24 15:37> Psych: Appearance: grossly normal <Rodolfo Reed MD - Last Filed: 06/16/24 15:37> Mental Status: mental status grossly normal <Rodolfo Reed MD - Last Filed: 06/16/24 15:37> Affect: normal affect <Doris Raya MD - Last Filed: 06/16/24 10:00> Attitude: cooperative <Doris Raya MD - Last Filed: 06/16/24 10:00> DS: Data Data Completed and Pending Labs on day of discharge: Labs from last 24 hours 06/15/24 04:16 Hgb 11.3 L Hct 32.9 L <Rodolfo Reed MD - Last Filed: 06/16/24 15:37> Discharge Plan Discharge Attending physician on discharge: Rodolfo Reed <Rodolfo Reed MD - Last Filed: 06/16/24 15:37> Rodolfo Reed <Doris Raya MD - Last Filed: 06/16/24 10:00> Consulting providers: Renetta Shcafer <Rodolfo Reed MD - Last Filed: 06/16/24 15:37> Discharging Clinician: Doris Raya <Rodolfo Reed MD - Last Filed: 06/16/24 15:37> Doris Raya <Doris Raya MD - Last Filed: 06/16/24 10:00> Anticipated Discharge Date/Time: 06/16/24 11:00 <Rodolfo Reed MD - Last Filed: 06/16/24 15:37> Patient Disposition: Home, Self-Care <Rodolfo Reed MD - Last Filed: 06/16/24 15:37> Activity: may shower, no straining and pelvic rest <Rodolfo Reed MD - Last Filed: 06/16/24 15:37> may shower, no straining and pelvic rest <Doris Raya MD - Last Filed: 06/16/24 10:00> Diet: regular <Rodolfo Reed MD - Last Filed: 06/16/24 15:37> regular <Doris Raya MD - Last Filed: 06/16/24 10:00> Discharge Instructions: Take stool softener daily. Take vitamins daily. Education: Mom and Baby Guide Given to: Mother Follow-Up: Call your delivering provider's office for an appointment to be seen in: 4-6 weeks Mom and baby should come to the [facility] for the follow-up appointment. Appointment Date/Time: June 18, 2024 at 9:00 am What to expect at your follow-up visit: Call [phone] if you are unable to keep your appointment time. BREAST CARE: * Wear a snug supportive bra. * For engorgement discomfort: Breast Feeding: * Apply warm moist washcloths * Express milk as needed to relieve engorgement * Wear loose clothing Bottle Feeding: * May apply ice packs * For sore nipples: * Identify correct latch-on * Apply warm moist washcloths before and after nursing * Air dry nipples after nursing * May apply Lansinoh cream to nipples EPISIOTOMY/PERINEAL CARE: * Until bleeding stops, use your fernando bottle after urinating * Change your pad frequently throughout the day * You may take sitz baths several times a day (fill your bathtub with warm water and soak for 20 minutes.) Do NOT bathe in the water * No tub baths until seen by your physician - You may shower ACTIVITY: * Rest as much as possible. * Do not exercise or lift anything heavier than your baby (such as laundry or other children.) * Avoid stairs or driving as much as possible. * Do not put anything into the vagina. No douching, tampons, or sexual activity until seen by physician. NOTIFY PHYSICIAN IF YOU HAVE ANY QUESTIONS OR IF ANY OF THE FOLLOWING SYMPTOMS OCCUR: * If your episiotomy or incision becomes red, swollen, or more painful than what you have experienced in the hospital. * If your vaginal bleeding becomes foul smelling. * If your vaginal bleeding becomes more heavy than a period or if your bleeding changes from pink to bright red. However, you may pass an occasional walnut-sized clot once or twice for the first week . * If you experience a sharp, shooting pain in you calves. * If you discover a hard, reddened area on your breast or if you experience flu-like symptoms. DIET: * Eat regular, well-balanced meals. * Drink plenty of fluids daily. If , drink to thirst. <Rodolfo Reed MD - Last Filed: 06/16/24 15:37> Patient Language: Panamanian <Rodolfo Reed MD - Last Filed: 06/16/24 15:37> Stand Alone Forms: General Discharge Information <Rodolfo Reed MD - Last Filed: 06/16/24 15:37> Follow-up/Referrals: Rodolfo Reed MD [Physician] - 2 Weeks (Call for appointment) <Rodolfo Reed MD - Last Filed: 06/16/24 15:37> Discharge Medications: New acetaminophen 500 mg tablet 1,000 mg PO TID Qty: 60 0RF docusate sodium [Colace] 100 mg capsule 100 mg PO BID Qty: 90 0RF ibuprofen 800 mg tablet 800 mg PO TID Qty: 40 0RF Continued prenat.vits,robyn,rxg-qxni-ulufx Tablet 1 tablet PO DAILY ferrous sulfate 325 mg (65 mg iron) tablet 325 mg PO DAILY <Rodolfo Reed MD - Last Filed: 06/16/24 15:37> Date of admission: 06/14/24 01:07 <Rodolfo Reed MD - Last Filed: 06/16/24 15:37> Primary Care Provider: Luis,Durga <Rodolfo Reed MD - Last Filed: 06/16/24 15:37> Admitting Provider: Rodolfo Reed MD - Last Filed: 06/16/24 15:37> Attending physician on admission: Rodolfo Reed MD - Last Filed: 06/16/24 15:37> Condition: Stable <Rodolfo Reed MD - Last Filed: 06/16/24 15:37>
[2024-06-18 09:22] VITALS: BP 112/72; PULSE 92; RESP 18; TEMP 37.3; O2SAT 100
== END 2024-06-16 12:15 | disposition home or self-care (01) | DRG 806 ==
LOC: ANHOB2 06-16 09:36 → ANHLDR 06-18 12:09
PROVIDERS: Admitting Provider Obstetrics & Gynecology; PCP Family Medicine; Visit Provider Obstetrics & Gynecology
DX: O32.0XX0 Maternal care for unstable lie, not applicable or unspecified (principal); O72.1 Other immediate postpartum hemorrhage; Z37.0 Single live birth; Z3A.39 39 weeks gestation of pregnancy; O77.0 Labor and delivery complicated by meconium in amniotic fluid; O70.1 Second degree perineal laceration during delivery
CPT/HCPCS: 36415; 85014; 85018; 85025; 86592; 86703; 86850; 86900; 86901; A9270; G0432; J2210; J2371; J2405; J2590; J2795; J7120

== ENCOUNTER 2025-02-05 16:22 | Outpatient (CLI) | payer OTHER, SELFPAY ==
--- NOTE | ~2025-02-05 | US_ITS ---
EXAMINATION: US pelvic complete w TV DATE: 02/05/2025 16:21 INDICATION: Pelvic and perineal pain. TECHNIQUE: Multiple transabdominal and transvaginal sonographic images of the pelvis were obtained. COMPARISON: None. FINDINGS: TRANSABDOMINAL ULTRASOUND: The uterus measures 8.3 x 4.4 x 5.8 cm. There is physiologic free fluid in the pelvis. TRANSVAGINAL ULTRASOUND: The endometrial complex measures 16 mm in thickness. There are small nabothian cysts in the cervix. The right ovary measures 3.5 x 2.8 x 2.3 cm. The left ovary measures 3.1 x 1.6 x 1.7 cm. There is normal vascular flow in the ovaries. IMPRESSION: 1. No etiology for the patient's symptoms. Reviewed, dictated and finalized at location E.
--- OUTSIDE RECORDS SUMMARY | 2025-02-05 16:13 | XMS_ITS | Clinical Summary ---
Author Organization [facility] Office Building Address [address] [place] [address] Care Team Providers Care Straightener Hand Name Role Phone Durga Smith MD Primary Care Provider [phone] Tony Freire MD Unavailable [phone] Allergies No known active allergies Medications prenat.vits,robyn, [id number]-tkzof tablet Take by mouth Active Active Problems Problem Noted Date Diagnosed [...] in [address] Freire. Encounters Date Type Department Care Team Description 01/02/2025 Patient Message [facility] Family Medicine at [address] [place] [address] Durga Smith MD Skin Bump on My Back 01/02/2025 Patient Self-Triage [facility] [address] [place] [phone] Mychart, Generic Provider 11/10/2024 2:30 PM CDT Telemedicine [facility] Virtual Care [address] [place] [phone] Lona Olsen MD Acute pharyngitis due to other specified organisms (Primary Dx); Otalgia of both ears 11/10/2024 Patient Self-Triage [facility] [address] [place] [phone] Mychart, Generic Provider from Last 3 Months Immunizations Immunization Administration Dates Next Due Influenza, Unspecified 06/23/2023(Deferr [...] staff should administer the PHQ-9) 0 11/12/2022 Comments Unknown Sex and Gender Information Value Date Recorded Sex Assigned at Not on file 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 Gender Identity Not on file Sexual Orientation Not on file Obstetrics History Last Filed Vital Signs Vital Sign Reading Time Taken Comments Blood Pressure 137/83 10/23/2024 9:22 AM CDT Pulse 68 10/23/2024 9:22 AM CDT Temperature 36.7 C (98 F) 10/02/2024 2:08 PM CDT Respiratory Rate 18 10/09/2024 1:20 PM CDT Oxygen Saturation 99% 10/02/2024 2:08 PM CDT Inhaled Oxygen Concentration - - Weight 74.4 kg (164 lb) 10/23/2024 9:22 AM CDT Height 158.8 cm (5' 2.5) 10/23/2024 9:22 AM CDT Body Mass Index 29.52 10/23/2024 9:22 AM CDT Plan of Treatment Health Maintenance Due Date Last Done Comments Cervical Cancer Screening 1992 Hepatitis C Screening 1992 DTaP/Tdap/Td Vaccine (1 - Tdap) 08/22/2003 Varicella Vaccines (1 of 2 - 13+ 2-dose series) 2005 Hepatitis B Screening 2010 HPV Vaccines (1 - 3-dose SCD M series) 08/22/2019 Depression Screening 11/13/2023 11/12/2022, 02/03/2021 Regular Well Visit/Exam 18-64 11/13/2023, 02/03/2021 Covid-19 Vaccine (3 - 2024-2 6 season) 2024 09/16/2020, 08/09/2020 Influenza Vaccine (#1) 2024 Pneumococcal vaccine <65 Aged Out No longer eligible based on patient's age to complete this topic Insurance [facility] Care Teams Straightener Hand Relationship Specialty Start Date End Date Durga Smith MD [address] [facility] [address] [id number] PCP - General Family Medicine 10/12/18 Tony Freire MD [address] [place] [address] Consulting Physician Rheumatology 12/31/22
--- OUTSIDE RECORDS SUMMARY | 2025-02-05 16:14 | XMS_ITS | Clinical Summary ---
Author Organization [facility] [place] Address [address] [facility] [place] [place] [address] Care Team Providers Care Agriculture Extension Specialist Name Role Phone Unavailable Primary Care Provider Unavailabl e Allergies No known active allergies Medications No known medications Active Problems No known active problems Encounters Date Type Department Care Team Description 01/29/2025 External Device Data [facility] Provider, Abstract 12/05/2024 External Device Data [facility] Provider, Abstract 12/04/2024 External Device Data [facility] Provider, Abstract 11/14/2024 External Device Data [facility] Provider, Abstract 11/13/2024 External Device Data [facility] Provider, Abstract from Last 3 Months Social History Tobacco Use Types Packs/Day Years Used Date Smoking Tobacco: Never Assessed Comments Unknown Sex and Gender Information Value Date Recorded Sex Assigned at Not on file 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 Gender Identity Not on file Sexual Orientation Not on file Last Filed Vital Signs Vital Sign Reading Time Taken Comments Blood Pressure 115/76 06/17/2020 7:58 PM CONCRETE ENGINEER Pulse 80 06/17/2020 7:58 PM CONCRETE ENGINEER Temperature 36.7 C (98.1 F) 06/17/2020 7:58 PM CONCRETE ENGINEER Respiratory Rate - - Oxygen Saturation 99% 06/17/2020 7:58 PM CONCRETE ENGINEER Inhaled Oxygen Concentration - - Weight - - Height - - Body Mass Index - - Plan of Treatment Health Maintenance Due Date Last Done Comments DTAP/TDAP/TD VACCINES (1 - Tdap) 08/22/2011 HEPATITIS B VACCINES (1 of 3 - 19+ 3-dose series) 08/01 HPV/Cotest (21-29) 2013 HPV VACCINES (1 - 3-dose SCDM series) 08/22/2019 CERVICAL CANCER SCREENING 2022 HPV/Cotest (30-65) 2022 PAP SMEAR 2022 INFLUENZA VACCINE (#1) 2024 Insurance [employer] OPEN CHOICE PPO
--- OUTSIDE RECORDS SUMMARY | 2025-02-05 16:14 | XMS_ITS | Clinical Summary ---
Author Organization [facility] Address [address] [place] [address] Care Team Providers Care Golf Cart Assembler Name Role Phone Kika Terry Bella OPTICIAN APPRENTICE DISPENSING Primary Care Provider [phone] Social History Tobacco Use Types Packs/Day Years Used Date Smoking Tobacco: Never Assessed Comments Unknown Sex and Gender Information Value Date Recorded Sex Assigned at Not on file Legal Sex Female 3:27 PM CDT Gender Identity Not on file Sexual Orientation Not on file Plan of Treatment Health Maintenance Due Date Last Done Comments Cervical Cancer Screening Pa p Smear (Age 30 to 64) Every 3 Years 1992 Annual Physical 08/22/1995 Hepatitis C 2010 DTaP, Tdap and Td Vaccines ( 1 - Tdap) 08/22/2011 Hepatitis B Vaccines (1 of 3 - 19+ 3-dose series) 08/22/2011 HPV Vaccines (1 - 3-dose SCD M series) 08/22/2019 Cervical Cancer Screening Pa p with HPV Testing (Age 30 to 64) Every 5 Years 2022 Cervical Cancer Screening wi th HPV 2022 COVID-19 Vaccine (3 - 2024-2 6 season) 2024 09/16/2020, 08/09/2020 Influenza Adult (#1) 2025 Meningococcal B Vaccine Aged Out No l onger eligible based on patient's age to complete this topic Meningococcal Vaccine Aged Out No kay carlos eligible based on patient's age to complete this topic Pneumococcal Vaccine: Pediatrics (0 to 5 Years) and At-Risk Patients (6 to 49 Years) Aged Out No longer eligible b ased on patient's age to complete this topic RSV Immunizations Under 20 Months Aged Out No longer eligible b ased on patient's age to complete this topic Insurance [facility] [facility] Care Teams Golf Cart Assembler Relationship Specialty Start Date End Date Kika Terry NP [address] [place] [address] PCP - General NURSE PRACTITIONER 08/07/24
--- OUTSIDE RECORDS SUMMARY | 2025-02-05 16:45 | XMS_ITS | Clinical Summary ---
Author Organization [facility] Address [address] [place] [address] Care Team Providers Care Mill Washer Name Role Phone Durga Smith MD Primary Care Provider [phone] Tony Freire MD Unavailable [phone] Allergies No known active allergies Medications prenat.vits,robyn, syh-cbpp-qeoem tablet Take by mouth Active Active Problems [...] Department Care Team Description 01/02/2025 Patient Message [facility] Family Medicine at [address] [place] [address] Durga Smith MD Skin Bump on My Back 01/02/2025 Patient Self-Triage [facility] Health[facility]/ Physicians [address] [place] [phone] Mychart, Generic Provider 11/10/2024 2:30 PM CDT Telemedicine [facility] Virtual Care [address] [place] [phone] Lona Olsen MD Acute pharyngitis due to other specified organisms (Primary Dx); Otalgia of both ears 11/10/2024 Patient Self-Triage [facility] Health[facility] [address] [place] [phone] Mychart, Generic Provider from Last 3 Months [...] on file 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 Care Teams Mill Washer Relationship Specialty Start Date End Date Durga Smith MD [address] [facility] [address] [address] PCP - General Family Medicine 10/12/18 Tony Freire MD [address] [place] [address] Consulting Physician Rheumatology 12/31/22
--- OUTSIDE RECORDS SUMMARY | 2025-02-05 16:45 | XMS_ITS | Clinical Summary ---
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
--- OUTSIDE RECORDS SUMMARY | 2025-02-05 16:45 | XMS_ITS | Clinical Summary ---
Author Organization [facility] Address [address] [place] [address] Care Team Providers Care Kettleman Name Role Phone Kika Terry Bella COLLISION MECHANIC Primary Care Provider [phone] Social History Tobacco Use Types Packs/Day Years [...] age to complete this topic Insurance [employer] [facility] Care Teams Kettleman Relationship Specialty Start Date End Date Kika Terry NP [address] [place] [address] PCP - General NURSE PRACTITIONER 08/07/24
[2025-02-05 17:57] LABS: Thyroid Stimulating Hormone Reflex 1.740 uIU/mL (0.465-4.68)
[2025-02-06 07:09] LABS: FSH 4.7 mIU/mL (.)
[2025-02-06 12:08] LABS: LH 6.1 mIU/mL (.)
[2025-02-08 00:07] LABS: Free Testosterone (Direct) 1.7 pg/mL (0.0-4.2)
== END 2025-02-05 16:23 | disposition home or self-care (01) ==
PROVIDERS: PCP Family Medicine; Visit Provider Nurse Practitioner Obstetrics & Gynecology
DX: R10.20 Pelvic and perineal pain unspecified side (principal); L68.0 Hirsutism
CPT/HCPCS: 36415; 76830; 76856; 82306; 83001; 83002; 83525; 84402; 84403; 84443